=== PATIENT | male | born 1935 | race Two or more races ===

== ENCOUNTER 2017-08-01 17:32 | Inpatient (IN) | payer MEDICARE ==
[~2017-08-01] VITALS: Ht 188 cm; Wt 79.4 kg
[2017-08-01 17:45] VITALS: BP 121/56
[2017-08-01] MEDS ORDERED: PROCARDIA XL90 M4 ORAL (18:13)
[2017-08-01] MEDS ORDERED: LISINOPRIL20 MG ORAL (18:13)
[2017-08-01] MEDS ORDERED: PEPCID20 MG ORAL (18:13)
[2017-08-01] MEDS ORDERED: ZEMPLAR1 MC1 ORAL (18:13)
[2017-08-01] MEDS ORDERED: TRADJENTA5 MG PO (18:13)
[2017-08-01] MEDS ORDERED: SINEMET 25-1001 EAC1 ORAL (18:13)
[2017-08-01] MEDS ORDERED: DOCUSATE SODIU100 MG ORAL (18:13)
[2017-08-01] MEDS ORDERED: ATORVASTATIN CA80 MG ORAL (18:13)
[2017-08-01] MEDS ORDERED: PLAVIX75 MG ORAL (18:13)
[2017-08-01] MEDS ORDERED: FERROUS SULFAT325 MG ORAL (18:13)
[2017-08-01] MEDS ORDERED: MULTIVITAMINS1 EAC8 ORAL (18:13)
[2017-08-01] MEDS ORDERED: ARICEPT5 MG ORAL (18:13)
[2017-08-01] MEDS ORDERED: TAMSULOSIN HCL0.4 MG ORAL (18:13)
[2017-08-01] MEDS ORDERED: POTASSIUM CHLO20 ME2 ORAL (18:13)
[2017-08-01] MEDS ORDERED: TORSEMIDE20 MG ORAL (18:13)
[2017-08-01] MEDS ORDERED: FISH OIL CAP1000 MG ORAL (18:13)
[2017-08-01] MEDS ORDERED: VITAMIN D400 INTLU ORAL (18:13)
[2017-08-01 18:20] LABS: BASOPHILS % (AUTO) 1.4 % (0.0-2.0); EOSINOPHILS % (AUTO) 3.1 % (0.0-3.0); HEMATOCRIT 29.9 % (42.0-52.0); LYMPHOCYTES % (AUTO) 18.6 % (20.0-45.0); MEAN CORPUSCULAR VOLUME 88 FL (80-99); MONOCYTES % (AUTO) 11.2 % (1.0-10.0); NEUTROPHILS % (AUTO) 65.7 % (45.0-75.0); PLATELET COUNT 389 K/UL (150-450); RED BLOOD COUNT 3.37 M/UL (4.70-6.10); WHITE BLOOD COUNT 10.2 K/UL (4.8-10.8)
[2017-08-01 18:25] LABS: ANION GAP 7 mmol/L (5-15); BLOOD UREA NITROGEN 38 mg/dL (7-18); CARBON DIOXIDE 25 MMOL/L (21-32); CHLORIDE 104 MMOL/L (98-107); CREATININE 2.1 MG/DL (0.55-1.30); POTASSIUM 4.9 MMOL/L (3.5-5.1); SODIUM 136 MMOL/L (136-145)
[2017-08-01 18:32] LABS: INR 1.1 (0.9-1.1)
--- NOTE | 2017-08-01 18:32 | Emergency Room Report ---
History of Present Illness General Chief Complaint: Gastrointestinal Bleed Source: Patient, Medical Record, EMS Present Illness HPI Patient present with complaints of general weakness Patient himself has some underlying confusion cannot provide significant history of why he was sent to the ER skilled nursing reports continued bright red blood per rectum over the course of the day Patient himself reports feeling lightheaded and questionable syncopal episode Denies any chest pain or shortness of breath denies any back or flank pain Allergies: Coded Allergies: CHLORHEXIDINE (Verified Allergy, Unknown, 08/01/17) Patient History Past Medical History: see triage record Pertinent Family History: none Reviewed Nursing Documentation: PMH: Agreed; PSxH: Agreed Nursing Documentation-PMH Past Medical History: No History, Except For Hx Hypertension: Yes Hx Diabetes: Yes Review of Systems All Other Systems: negative except mentioned in HPI Physical Exam Vital Signs Date Time Temp Pulse Resp B/P (MAP) Pulse Ox O2 Delivery O2 Flow Rate FiO2 08/01/17 17:35 97.3 76 20 128/59 95 Room Air 97.3 Sp02 EP Interpretation: reviewed, normal General Appearance: no apparent distress Head: normocephalic, atraumatic Eyes: bilateral eye PERRL, bilateral eye EOMI ENT: hearing grossly normal, normal pharynx, TMs + canals normal, uvula midline Neck: full range of motion, supple, no meningismus, no bony tend Respiratory: lungs clear, normal breath sounds, no rhonchi, no respiratory distress, no retraction, no accessory muscle use Cardiovascular #1: normal peripheral pulses, regular rate, rhythm, no edema, no gallop, no JVD, no murmur Gastrointestinal: normal bowel sounds, non tender, soft, no mass, no organomegaly, non-distended, no guarding, no hernia, no pulsatile mass, no rebound Genitourinary: no CVA tenderness Musculoskeletal: other - Moving both upper extremities Neurologic: responsive, sensory intact Psychiatric: mood/affect normal Skin: pallor Lymphatic: normal inspection, no adenopathy Medical Decision Making Diagnostic Impression: Primary Impression: Gastrointestinal hemorrhage Additional Impression: Elevated troponin ER Course Patient is a fairly complex patient with multiple differential to consideration including but not limited to cardiac cardiopulmonary and vascular emergencies Patient's hemoglobin is 10.0 at this time acute transfusion has not been performed Also remaining hemodynamically stable However given the complaints and presentation patient will require further inpatient admission Aspirin has not been given as the patient appears to have possible GI bleed Labs Test 08/01/17 17:50 White Blood Count 10.2 K/UL (4.8-10.8) Red Blood Count 3.37 M/UL (4.70-6.10) Hemoglobin 10.0 G/DL (14.2-18.0) Hematocrit 29.9 % (42.0-52.0) Mean Corpuscular Volume 88 FL (80-99) Mean Corpuscular Hemoglobin 29.6 PG (27.0-31.0) Mean Corpuscular Hemoglobin Concent 33.5 G/DL (32.0-36.0) Red Cell Distribution Width 12.0 % (11.6-14.8) Platelet Count 389 K/UL (150-450) Mean Platelet Volume 6.0 FL (6.5-10.1) Neutrophils (%) (Auto) 65.7 % (45.0-75.0) Lymphocytes (%) (Auto) 18.6 % (20.0-45.0) Monocytes (%) (Auto) 11.2 % (1.0-10.0) Eosinophils (%) (Auto) 3.1 % (0.0-3.0) Basophils (%) (Auto) 1.4 % (0.0-2.0) Prothrombin Time 11.4 SEC (9.30-11.50) Prothromb Time International Ratio 1.1 (0.9-1.1) Activated Partial Thromboplast Time 27 SEC (23-33) Sodium Level 136 MMOL/L (136-145) Potassium Level 4.9 MMOL/L (3.5-5.1) Chloride Level 104 MMOL/L (98-107) Carbon Dioxide Level 25 MMOL/L (21-32) Anion Gap 7 mmol/L (5-15) Blood Urea Nitrogen 38 mg/dL (7-18) Creatinine 2.1 MG/DL (0.55-1.30) Estimat Glomerular Filtration Rate mL/min (>60) Glucose Level 118 MG/DL (74-106) Calcium Level 8.0 MG/DL (8.5-10.1) Total Bilirubin 0.2 MG/DL (0.2-1.0) Aspartate Amino Transf (AST/SGOT) 23 U/L (15-37) Alanine Aminotransferase (ALT/SGPT) 23 U/L (12-78) Alkaline Phosphatase 139 U/L (46-116) Total Creatine Kinase 102 U/L (26-308) Creatine Kinase MB 0.8 NG/ML (0.0-3.6) Creatine Kinase MB Relative Index 0.7 Troponin I 0.132 ng/mL (0.000-0.056) Total Protein 6.7 G/DL (6.4-8.2) Albumin 2.9 G/DL (3.4-5.0) Globulin 3.8 g/dL Albumin/Globulin Ratio 0.8 (1.0-2.7) Lipase 310 U/L (73-393) Rhythm Strip Diag. Results EP Interpretation: yes Rate: 76 Rhythm: NSR, no PVC's, no ectopy Chest X-Ray Diagnostic Results Chest X-Ray Diagnostic Results : Chest X-Ray Ordered: Yes # of Views/Limited/Complete: 1 View Indication: Chest Pain EP Interpretation: Yes Interpretation: no consolidation, no effusion, no pneumothorax, other - Elevated Right hemidiaphragm Impression: No acute disease Electronically Signed by: Kofi Kang DO Last Vital Signs Date Time Temp Pulse Resp B/P (MAP) Pulse Ox O2 Delivery O2 Flow Rate FiO2 08/01/17 17:45 97.3 69 27 121/56 100 Room Air 97.3 Status: improved Disposition: ADMITTED INPATIENT Condition: Serious Kofi Kang DO Aug 01, 2017 18:32
[2017-08-01 18:38] LABS: ALANINE AMINOTRANSFERASE 23 U/L (12-78); ALBUMIN 2.9 G/DL (3.4-5.0); ALBUMIN/GLOBULIN RATIO 0.8 (1.0-2.7); ALKALINE PHOSPHATASE 139 U/L (46-116); ASPARTATE AMINO TRANSFERASE 23 U/L (15-37); BILIRUBIN,TOTAL 0.2 MG/DL (0.2-1.0); CKMB 0.8 NG/ML (0.0-3.6); CREATINE KINASE 102 U/L (26-308)
[2017-08-01 19:01] VITALS: BP 129/59
--- NOTE | 2017-08-01 20:11 | Pulmonolgy Critical Care Note ---
Critical Care - Asmt/Plan Assessment/Plan: History of Present Illness General Chief Complaint: Gastrointestinal Bleed Source: Patient, Medical Record, EMS Present Illness HPI Patient present from assisted, complians of general weakness, noted to have lower GI bleed in the ED. Patient himself has some underlying confusion cannot provide significant history of why he was sent to the ER skilled nursing reports continued bright red blood per rectum over the course of the day Patient himself reports feeling lightheaded and questionable syncopal episode Denies any chest pain or shortness of breath denies any back or flank pain Allergies: Coded Allergies: CHLORHEXIDINE (Verified Allergy, Unknown, 08/01/17) Patient History Past Medical History: Dementia, CAD - on Plavix, HTN, Type 2 Diabetes Pertinent Family History: none Reviewed Nursing Documentation: PMH: Agreed; PSxH: Agreed Nursing Documentation-PMH Past Medical History: No History, Except For Hx Hypertension: Yes Hx Diabetes: Yes Review of Systems All Other Systems: negative except mentioned in HPI Physical Exam Vital Signs Date Time Temp Pulse Resp B/P (MAP) Pulse Ox O2 Delivery O2 Flow Rate FiO2 08/01/17 17:35 97.3 76 20 128/59 95 Room Air 97.3 Sp02 EP Interpretation: reviewed, normal General Appearance: no apparent distress Head: normocephalic, atraumatic Eyes: bilateral eye PERRL, bilateral eye EOMI ENT: hearing grossly normal, normal pharynx, TMs + canals normal, uvula midline Neck: full range of motion, supple, no meningismus, no bony tend Respiratory: lungs clear, normal breath sounds, no rhonchi, no respiratory distress, no retraction, no accessory muscle use Cardiovascular #1: normal peripheral pulses, regular rate, rhythm, no edema, no gallop, no JVD, no murmur Gastrointestinal: normal bowel sounds, non tender, soft, no mass, no organomegaly, non-distended, no guarding, no hernia, no pulsatile mass, no rebound Genitourinary: no CVA tenderness Musculoskeletal: other - Moving both upper extremities Neurologic: responsive, sensory intact Psychiatric: mood/affect normal Skin: pallor Lymphatic: normal inspection, no adenopathy Medical Decision Making GI bleeding, previously on Plavix Currently HD stable H/o CAD, T2DM, HTN, Dementia Plan: Admit monitored bed Type and Cross H+H Q8 GI consult Dr Daigle [phone] Trend Troponin Daily BMP Last Vital Signs Date Time Temp Pulse Resp B/P (MAP) Pulse Ox O2 Delivery O2 Flow Rate FiO2 08/01/17 17:45 97.3 69 27 121/56 100 Room Air 97.3 Critical Care - Objective Last 24 Hour Vital Signs Date Time Temp Pulse Resp B/P (MAP) Pulse Ox O2 Delivery O2 Flow Rate FiO2 08/01/17 19:01 97.3 68 26 129/59 98 Room Air 97.3 08/01/17 17:45 97.3 69 27 121/56 100 Room Air 97.3 08/01/17 17:35 97.3 76 20 128/59 95 Room Air 97.3 Accucheck: 118 Critical Care - Subjective ROS Limited/Unobtainable: Yes Condition: stable, unchanged EKG Rhythm: Sinus Rhythm Ritchie Aquino M.D. Aug 01, 2017 20:11
[2017-08-01 21:05] VITALS: BP 125/61
[2017-08-01 22:30] VITALS: BP 126/62
[2017-08-01] MEDS ORDERED: HYDROmorphone 1mg/ml Carpuject IVP PRN (23:30)
[2017-08-01] MEDS ORDERED: DiphenhydrAMINE 50mg/ml Inj IVP PRN (23:30)
[2017-08-01] MEDS ORDERED: Hydromorphone 0.5mg/0.5ml inj IVP PRN (23:30)
[2017-08-02] VITALS: BP 160/75
[2017-08-02] MEDS: D5NS 1,000 ML IV SCH ×2 (00:43→12:56)
[2017-08-02 04:00] VITALS: BP 112/45
[2017-08-02] MEDS: NovoLOG Insulin Flexpen SUBQ SCH ×4 (06:30→21:36)
[2017-08-02 08:00] VITALS: BP 115/58
[2017-08-02] MEDS ORDERED: Lisinopril 20mg tab ORAL SCH (09:00)
[2017-08-02 09:14] LABS: BASOPHILS % (AUTO) 0.9 % (0.0-2.0); HEMATOCRIT 28.2 % (42.0-52.0); HEMOGLOBIN 9.5 G/DL (14.2-18.0); LYMPHOCYTES % (AUTO) 15.9 % (20.0-45.0); MEAN CORPUSCULAR VOLUME 90 FL (80-99); MONOCYTES % (AUTO) 11.1 % (1.0-10.0); NEUTROPHILS % (AUTO) 70.1 % (45.0-75.0); PLATELET COUNT 386 K/UL (150-450); RED BLOOD COUNT 3.15 M/UL (4.70-6.10); RED CELL DISTRIBUTION WIDTH 12.4 % (11.6-14.8); WHITE BLOOD COUNT 11.1 K/UL (4.8-10.8)
--- NOTE | 2017-08-02 09:14 | Cardiac Electrophysiology PN ---
Subjective Subjective Cardiology consult dictated [id number] Objective Last 24 Hour Vital Signs Date Time Temp Pulse Resp B/P (MAP) Pulse Ox O2 Delivery O2 Flow Rate FiO2 08/02/17 04:00 66 08/02/17 04:00 97.9 65 21 112/45 99 Room Air 97.9 08/02/17 00:00 97.3 78 22 160/75 93 Room Air 97.3 08/02/17 00:00 69 08/01/17 22:40 97.8 69 17 126/62 98 Room Air 97.8 08/01/17 22:30 97.8 69 17 126/62 98 Room Air 97.8 08/01/17 21:05 97.6 70 18 125/61 97 Room Air 97.6 08/01/17 19:01 97.3 68 26 129/59 98 Room Air 97.3 08/01/17 17:45 97.3 69 27 121/56 100 Room Air 97.3 08/01/17 17:35 97.3 76 20 128/59 95 Room Air 97.3 Intake and Output 08/01/17 08/02/17 19:00 07:00 Intake Total 0 ml Output Total 150 ml Balance 0 ml -150 ml Intake Oral 0 ml Output Urine Total 150 ml # Bowel Movements 1 Laboratory Tests Test 08/01/17 17:50 08/02/17 08:25 White Blood Count 10.2 K/UL (4.8-10.8) Pending Red Blood Count 3.37 M/UL (4.70-6.10) L Pending Hemoglobin 10.0 G/DL (14.2-18.0) L Pending Hematocrit 29.9 % (42.0-52.0) L Pending Mean Corpuscular Volume 88 FL (80-99) Pending Mean Corpuscular Hemoglobin 29.6 PG (27.0-31.0) Pending Mean Corpuscular Hemoglobin Concent 33.5 G/DL (32.0-36.0) Pending Red Cell Distribution Width 12.0 % (11.6-14.8) Pending Platelet Count 389 K/UL (150-450) Pending Mean Platelet Volume 6.0 FL (6.5-10.1) L Pending Neutrophils (%) (Auto) 65.7 % (45.0-75.0) Pending Lymphocytes (%) (Auto) 18.6 % (20.0-45.0) L Pending Monocytes (%) (Auto) 11.2 % (1.0-10.0) H Pending Eosinophils (%) (Auto) 3.1 % (0.0-3.0) H Pending Basophils (%) (Auto) 1.4 % (0.0-2.0) Pending Prothrombin Time 11.4 SEC (9.30-11.50) Prothromb Time International Ratio 1.1 (0.9-1.1) Activated Partial Thromboplast Time 27 SEC (23-33) Sodium Level 136 MMOL/L (136-145) Pending Potassium Level 4.9 MMOL/L (3.5-5.1) Pending Chloride Level 104 MMOL/L (98-107) Pending Carbon Dioxide Level 25 MMOL/L (21-32) Pending Anion Gap 7 mmol/L (5-15) Blood Urea Nitrogen 38 mg/dL (7-18) H Pending Creatinine 2.1 MG/DL (0.55-1.30) H Pending Estimat Glomerular Filtration Rate mL/min (>60) Pending Glucose Level 118 MG/DL (74-106) H Pending Calcium Level 8.0 MG/DL (8.5-10.1) L Pending Total Bilirubin 0.2 MG/DL (0.2-1.0) Aspartate Amino Transf (AST/SGOT) 23 U/L (15-37) Alanine Aminotransferase (ALT/SGPT) 23 U/L (12-78) Alkaline Phosphatase 139 U/L (46-116) H Total Creatine Kinase 102 U/L (26-308) Creatine Kinase MB 0.8 NG/ML (0.0-3.6) Creatine Kinase MB Relative Index 0.7 Troponin I 0.132 ng/mL (0.000-0.056) Pending Total Protein 6.7 G/DL (6.4-8.2) Albumin 2.9 G/DL (3.4-5.0) L Globulin 3.8 g/dL Albumin/Globulin Ratio 0.8 (1.0-2.7) L Lipase 310 U/L (73-393) Reyes Solomon MD Aug 02, 2017 09:14
[2017-08-02 09:26] LABS: ANION GAP 8 mmol/L (5-15); BLOOD UREA NITROGEN 40 mg/dL (7-18); CALCIUM 7.8 MG/DL (8.5-10.1); CARBON DIOXIDE 23 MMOL/L (21-32); CHLORIDE 106 MMOL/L (98-107); CREATININE 1.9 MG/DL (0.55-1.30); POTASSIUM 4.7 MMOL/L (3.5-5.1); SODIUM 136 MMOL/L (136-145)
[2017-08-02] MEDS: Torsemide 10mg tab ORAL SCH (09:53)
[2017-08-02] MEDS: Donepezil 5mg Tab ORAL SCH (09:53)
[2017-08-02] MEDS: Paricalcitol 1mcg cap ORAL SCH ×3 (09:53→18:28)
[2017-08-02] MEDS: Docusate 100mg cap ORAL SCH ×2 (09:54→18:28)
[2017-08-02] MEDS: Vitamin D 1000 IU Tab ORAL SCH (09:54)
[2017-08-02] MEDS: Levodopa/Carbidopa 25/100 tab ORAL SCH ×3 (09:54→18:28)
[2017-08-02] MEDS: Pantoprazole Inj IVP SCH ×2 (09:55→21:33)
--- NOTE | 2017-08-02 10:12 | Diagnostic Imaging Report ---
Indication: Chest pain Technique: One view of the chest Comparison: none Findings: The right hemidiaphragm is elevated. There is compressive atelectasis at the right lung base. Lungs and pleural spaces otherwise clear. Metallic foreign bodies project over the upper abdomen, may represent surgical clips Impression: No definite acute process Elevated right hemidiaphragm with resultant right basilar atelectasis
[2017-08-02 12:00] VITALS: BP 114/58
--- NOTE | 2017-08-02 14:52 | History and Physical ---
History of Present Illness General Date patient seen: Aug 02, 2017 Time patient seen: 14:52 Reason for Hospitalization: Acute Gastrointestinal Bleed Present Illness HPI 82y/o male with pmh of Parkinson's disease, HTN, HLD, dementia, BPH, CAD, DM2 who presents with bloody stools. Pt was sent from SNF given stool that appears deep red with some black tarry stool too. Pt states he has never had this before. He c/o mid abd discomfort. Denies f/c, n/v, chest pain, SOB, dysuria. C/ o generalized weakness. In ED, pt had no e/o active bleeding. CBC shoed hgb 10. Allergies: Coded Allergies: CHLORHEXIDINE (Verified Allergy, Unknown, 08/01/17) Medication History Scheduled Atorvastatin Calcium* (Lipitor*), 80 MG ORAL BEDTIME, (Reported) Carbidopa/Levodopa 25-100 Mg* (Sinemet 25-100 Mg Tablet*), 1 TAB ORAL THREE TIMES A DAY, (Reported) Clopidogrel Bisulfate* (Plavix*), 75 MG ORAL DAILY, (Reported) Docusate Sodium* (Docusate Sodium*), 100 MG ORAL TWICE A DAY, (Reported) Donepezil Hcl* (Aricept*), 5 MG ORAL DAILY, (Reported) Famotidine (Pepcid), 20 MG ORAL BEDTIME, (Reported) Ferrous Sulfate* (Ferrous Sulfate*), 325 MG ORAL TWICE A DAY, (Reported) Fish Oil (Fish Oil 1,000 mg Capsule), 1,000 MG ORAL DAILY, (Reported) Linagliptin (Tradjenta), 5 MG PO DAILY, (Reported) Lisinopril (Lisinopril*), 20 MG ORAL BID, (Reported) Multivitamin With Minerals (Multivitamins With Minerals*), 1 TAB ORAL DAILY, ( Reported) Nifedipine Xl* (Procardia Xl*), 90 MG ORAL DAILY, (Reported) Paricalcitol (Zemplar), 1 MCG ORAL TID, (Reported) Potassium Chloride (Potassium Chloride), 20 MEQ ORAL DAILY, (Reported) Tamsulosin Hcl (Tamsulosin Hcl*), 0.4 MG ORAL BEDTIME, (Reported) Torsemide* (Demadex*), 20 MG ORAL DAILY, (Reported) Vitamin D (Vitamin D3), 1,000 UNITS ORAL DAILY, (Reported) Patient History History Provided By: Patient, Medical Record, PMD Healthcare decision maker Resuscitation status Full Code Advanced Directive on File Past Medical/Surgical History Past Medical/Surgical History: (1) HTN (hypertension) (2) DM2 (diabetes mellitus, type 2) (3) CAD (coronary artery disease) (4) HLD (hyperlipidemia) (5) BPH (benign prostatic hyperplasia) (6) Dementia (7) carotid stenosis s/p left carotid stenting (8) Prostate cancer (9) CVA (cerebral vascular accident) (10) Parkinsonism (11) Chronic diastolic heart failure Family History Family History: Patient reports no known family medical history. Social History Social History: (1) resides in [facility] Review of Systems Constitutional: Reports: weakness Eye: Reports: no symptoms ENT: Reports: no symptoms Respiratory: Reports: no symptoms Cardiovascular: Reports: no symptoms Gastrointestinal: Reports: abdominal pain, melena Genitourinary: Reports: no symptoms Musculoskeletal: Reports: no symptoms Skin: Reports: no symptoms Psychiatric: Reports: no symptoms Neurological: Reports: no symptoms Endocrine: Reports: no symptoms Hematologic/Lymphatic: Reports: no symptoms Physical Exam Physical Exam Narrative General: alert, cooperative, no distress, appears stated age Head: normocephalic, without obvious abnormality, atraumatic Eyes: conjunctivae/corneas clear. PERRL, EOM's intact Throat: lips, mucosa, and tongue normal. MMM Neck: supple, symmetrical, trachea midline, and no JVD Lungs: clear to auscultation bilaterally Heart: regular rate and rhythm, S1, S2 normal, no murmur, click, rub or gallop Abdomen: soft, mild TTP of mid abdominal area w/o rebound/guarding, non- distended, bowel sounds normal Extremities: extremities normal, atraumatic, no cyanosis or edema Pulses: 2+ and symmetric Skin: skin color, texture, turgor normal; no rashes or lesions Neurologic: grossly normal, no focal deficits Last 24 Hour Vital Signs Date Time Temp Pulse Resp B/P (MAP) Pulse Ox O2 Delivery O2 Flow Rate FiO2 08/02/17 12:00 97.7 75 17 114/58 98 Room Air 97.7 08/02/17 09:00 74 115/58 08/02/17 08:00 97.7 74 19 115/58 97 Room Air 97.7 08/02/17 08:00 69 08/02/17 04:00 66 08/02/17 04:00 97.9 65 21 112/45 99 Room Air 97.9 08/02/17 00:00 97.3 78 22 160/75 93 Room Air 97.3 08/02/17 00:00 69 08/01/17 22:40 97.8 69 17 126/62 98 Room Air 97.8 08/01/17 22:30 97.8 69 17 126/62 98 Room Air 97.8 08/01/17 21:05 97.6 70 18 125/61 97 Room Air 97.6 08/01/17 19:01 97.3 68 26 129/59 98 Room Air 97.3 08/01/17 17:45 97.3 69 27 121/56 100 Room Air 97.3 08/01/17 17:35 97.3 76 20 128/59 95 Room Air 97.3 Intake and Output 08/01/17 08/02/17 19:00 07:00 Intake Total 0 ml 70 ml Output Total 150 ml Balance 0 ml -80 ml Intake Oral 0 ml IV Total 70 ml Output Urine Total 150 ml # Bowel Movements 1 Laboratory Tests Test 08/01/17 17:50 08/02/17 08:25 08/02/17 12:20 White Blood Count 10.2 K/UL (4.8-10.8) 11.1 K/UL (4.8-10.8) H Red Blood Count 3.37 M/UL (4.70-6.10) L 3.15 M/UL (4.70-6.10) L Hemoglobin 10.0 G/DL (14.2-18.0) L 9.5 G/DL (14.2-18.0) L Hematocrit 29.9 % (42.0-52.0) L 28.2 % (42.0-52.0) L Mean Corpuscular Volume 88 FL (80-99) 90 FL (80-99) Mean Corpuscular Hemoglobin 29.6 PG (27.0-31.0) 30.2 PG (27.0-31.0) Mean Corpuscular Hemoglobin Concent 33.5 G/DL (32.0-36.0) 33.7 G/DL (32.0-36.0) Red Cell Distribution Width 12.0 % (11.6-14.8) 12.4 % (11.6-14.8) Platelet Count 389 K/UL (150-450) 386 K/UL (150-450) Mean Platelet Volume 6.0 FL (6.5-10.1) L 6.0 FL (6.5-10.1) L Neutrophils (%) (Auto) 65.7 % (45.0-75.0) 70.1 % (45.0-75.0) Lymphocytes (%) (Auto) 18.6 % (20.0-45.0) L 15.9 % (20.0-45.0) L Monocytes (%) (Auto) 11.2 % (1.0-10.0) H 11.1 % (1.0-10.0) H Eosinophils (%) (Auto) 3.1 % (0.0-3.0) H 2.0 % (0.0-3.0) Basophils (%) (Auto) 1.4 % (0.0-2.0) 0.9 % (0.0-2.0) Prothrombin Time 11.4 SEC (9.30-11.50) Prothromb Time International Ratio 1.1 (0.9-1.1) Activated Partial Thromboplast Time 27 SEC (23-33) Sodium Level 136 MMOL/L (136-145) 136 MMOL/L (136-145) Potassium Level 4.9 MMOL/L (3.5-5.1) 4.7 MMOL/L (3.5-5.1) Chloride Level 104 MMOL/L (98-107) 106 MMOL/L (98-107) Carbon Dioxide Level 25 MMOL/L (21-32) 23 MMOL/L (21-32) Anion Gap 7 mmol/L (5-15) 8 mmol/L (5-15) Blood Urea Nitrogen 38 mg/dL (7-18) H 40 mg/dL (7-18) H Creatinine 2.1 MG/DL (0.55-1.30) H 1.9 MG/DL (0.55-1.30) H Estimat Glomerular Filtration Rate mL/min (>60) mL/min (>60) Glucose Level 118 MG/DL (74-106) H 126 MG/DL (74-106) H Calcium Level 8.0 MG/DL (8.5-10.1) L 7.8 MG/DL (8.5-10.1) L Total Bilirubin 0.2 MG/DL (0.2-1.0) Aspartate Amino Transf (AST/SGOT) 23 U/L (15-37) Alanine Aminotransferase (ALT/SGPT) 23 U/L (12-78) Alkaline Phosphatase 139 U/L (46-116) H Total Creatine Kinase 102 U/L (26-308) Creatine Kinase MB 0.8 NG/ML (0.0-3.6) Creatine Kinase MB Relative Index 0.7 Troponin I 0.132 ng/mL (0.000-0.056) 0.108 ng/mL (0.000-0.056) 0.104 ng/mL (0.000-0.056) Total Protein 6.7 G/DL (6.4-8.2) Albumin 2.9 G/DL (3.4-5.0) L Globulin 3.8 g/dL Albumin/Globulin Ratio 0.8 (1.0-2.7) L Lipase 310 U/L (73-393) Height (Feet): 6 Height (Inches): 2.00 Weight (Pounds): 175 Medications Current Medications Medications (Trade) Dose Ordered Sig/Sunday Route PRN Reason Start Time Stop Time Status Last Admin Dose Admin Acetaminophen (Tylenol) 650 mg Q6H PRN ORAL Mild Pain/Temp > 101 08/01/17 23:30 08/31/17 23:29 Atorvastatin Calcium (Lipitor) 80 mg BEDTIME ORAL 08/02/17 21:00 09/01/17 20:59 Carbidopa/Levodopa (Sinemet 25/100) 1 tab THREE TIMES A DAY ORAL 08/02/17 09:00 09/01/17 08:59 08/02/17 12:55 Dextrose (Dextrose 50%) STAT PRN IV Hypoglycemia 08/01/17 23:45 08/31/17 23:44 Dextrose/Sodium Chloride 1,000 ml @ 70 mls/hr [id number] IV 08/01/17 23:30 08/31/17 23:29 08/02/17 12:56 Diphenhydramine HCl (Benadryl) 25 mg Q6H PRN IVP Itching 08/01/17 23:30 08/31/17 23:29 Docusate Sodium (Colace) 100 mg TWICE A DAY ORAL 08/02/17 09:00 09/01/17 08:59 08/02/17 09:54 Donepezil HCl (Aricept) 5 mg DAILY ORAL 08/02/17 09:00 09/01/17 08:59 08/02/17 09:53 Fish Oil (Fish Oil) 1,000 mg DAILY ORAL 08/02/17 09:00 09/01/17 08:59 08/02/17 09:53 Hydromorphone HCl (Dilaudid) 0.5 mg Q4H PRN IVP Moderate Breakthru Pain (5-7) 08/01/17 23:30 08/08/17 23:29 Hydromorphone HCl (Dilaudid) 1 mg Q3HR PRN IVP Severe Pain (Pain Scale 7-10) 08/01/17 23:30 08/08/17 23:29 Insulin Aspart (NovoLOG) BEFORE MEALS AND HS SUBQ 08/02/17 06:30 09/01/17 06:29 08/02/17 12:56 Metoprolol Tartrate (Lopressor) 12.5 mg Q12HR ORAL 08/02/17 21:00 09/01/17 20:59 Multivitamins (Multivitamins) 1 tab DAILY ORAL 08/02/17 09:00 09/01/17 08:59 08/02/17 09:53 Nifedipine (Procardia XL) 90 mg DAILY ORAL 08/02/17 09:00 09/01/17 08:59 Ondansetron HCl (Zofran) 4 mg Q8HR PRN IVP Nausea & Vomiting 08/01/17 23:30 08/31/17 23:29 Pantoprazole (Protonix) 40 mg EVERY 12 HOURS IVP 08/02/17 09:00 09/01/17 08:59 08/02/17 09:55 Paricalcitol (Zemplar) 1 mcg TID ORAL 08/02/17 09:00 09/01/17 08:59 08/02/17 12:55 Potassium Chloride (K-Dur) 20 meq DAILY ORAL 08/02/17 09:00 09/01/17 08:59 08/02/17 09:53 Sitagliptin Phosphate (Januvia) 25 mg ACBREAKFAST ORAL 08/02/17 17:30 09/01/17 17:29 Tamsulosin HCl (Flomax) 0.4 mg BEDTIME ORAL 08/02/17 21:00 09/01/17 20:59 Torsemide (Demadex) 20 mg DAILY ORAL 08/02/17 09:00 09/01/17 08:59 08/02/17 09:53 Vitamin D (Vitamin D) 1,000 intlu DAILY ORAL 08/02/17 09:00 09/01/17 08:59 08/02/17 09:54 Assessment/Plan Problem List: (1) Acute GI bleeding ICD Codes: K92.2 - Gastrointestinal hemorrhage, unspecified SNOMED: 41345934 (2) Elevated troponin ICD Codes: R74.8 - Abnormal levels of other serum enzymes SNOMED: 069546096, 434935589, 166145011 (3) STEPHANIE vs STEPHANIE on CKD Assessment & Plan: Unclear baseline SCr (4) DM2 (diabetes mellitus, type 2) ICD Codes: E11.9 - Type 2 diabetes mellitus without complications SNOMED: 91047046 (5) HTN (hypertension) ICD Codes: I10 - Essential (primary) hypertension SNOMED: 37879286 (6) HLD (hyperlipidemia) ICD Codes: E78.5 - Hyperlipidemia, unspecified SNOMED: 55739415 (7) BPH (benign prostatic hyperplasia) ICD Codes: N40.0 - Benign prostatic hyperplasia without lower urinary tract symptoms SNOMED: 186228586 (8) CAD (coronary artery disease) ICD Codes: I25.10 - Atherosclerotic heart disease of [place] coronary artery without angina pectoris SNOMED: 65838376 (9) Dementia ICD Codes: F03.90 - Unspecified dementia without behavioral disturbance SNOMED: 12297623 (10) Parkinsonism ICD Codes: G20 - Parkinson's disease SNOMED: 98761535 (11) CVA (cerebral vascular accident) ICD Codes: I63.9 - Cerebral infarction, unspecified SNOMED: 039257850 (12) Chronic diastolic heart failure ICD Codes: I50.32 - Chronic diastolic (congestive) heart failure SNOMED: 026377571 Status: stable Assessment/Plan Possibly lower GI bleed 2/2 diverticulosis vs AVMs vs hemorrhoids, or upper GI bleed 2/2 PUD Elevated troponin may be 2/2 renal insufficiency Admit to tele GI consulted--plan for EGD Mon once cleared by cardiology PPI IV BID Trend CBC, transfuse for hgb<7.5 or active bleeding Trend trop/EKG Check TTE Cardiology consulted Hold plavix given concern for bleed Hold lisinopril and torsemide given STEPHANIE IVFs Trend BMP Pain control, bowel regimen Supportive care DVT Prophylaxis: SCD Code Status: DNR/DNI Hospital Classification Declaration: Based on this initial evaluation, and depending on the patient's clinical course, I anticipate that this patient will require hospitalization for 2-3 days for acute GI bleed and close respiratory/ hemodynamic monitoring. Disposition: Once the patient is stable to leave the hospital, I anticipate the patient will likely be discharged to the following environment: back to SNF I spent 72 minutes on this patient's case, and >50% was dedicated to counseling and/or care coordination. Discussed with patient/family, nursing staff, SW/CM, GI, cardiology regarding clinical status, treatment course, and disposition planning. Time of note may not reflect time of encounter. Sherry Mccoy M.D. Aug 02, 2017 14:52
[2017-08-02 16:00] VITALS: BP 129/70
--- NOTE | 2017-08-02 16:45 | Consultation ---
DATE OF CONSULTATION: 08/02/2017 CARDIOLOGY CONSULTATION CONSULTING PHYSICIAN: Reyes Solomon M.D. REFERRING PHYSICIAN: Lawrence Francis M.D. REASON FOR CONSULTATION: Elevated troponin. HISTORY OF PRESENT ILLNESS: The patient is an 82-year-old gentleman, who was brought to the emergency from [facility] for generalized weakness. The patient was noted to have lower gastrointestinal bleed in the emergency room. The patient still denies any chest pain, palpitation, or shortness of breath. Per ER note, the patient continued to have bright red blood per rectum. At the time of my evaluation, the patient denies any chest pain or shortness of breath and he is on the telemetry unit. PAST MEDICAL HISTORY: 1. Hypertension. 2. Type 2 diabetes. 3. History of coronary artery disease. 4. Dementia. FAMILY HISTORY: Noncontributory. SOCIAL HISTORY: He lives in [facility]. Does not smoke or drink alcohol. REVIEW OF SYSTEMS: Performed and was negative other than what was mentioned in the history of present illness. PHYSICAL EXAMINATION: VITAL SIGNS: Blood pressure is 112/45, initially was 60/75, pulse rate 65, respirations 18, and he is afebrile. HEAD AND NECK: Showed no JVD. LUNGS: Clear. CARDIOVASCULAR: Shows regular S1 and S2 with no gallop or murmur. ABDOMEN: Soft and nontender. EXTREMITIES: No pitting edema. DIAGNOSTIC DATA: His EKG shows sinus rhythm with left axis deviation. LABORATORY DATA: White count of 10, hemoglobin of 10, hematocrit of 30, and platelet count is 389,000. Sodium 136, potassium 4.9, BUN of , creatinine of 2.1, and glucose of 118. Troponin is 0.132. ASSESSMENT AND PLAN: 1. Elevated troponin of 0.132. EKG showed sinus rhythm, but no acute ST-T wave abnormalities and the patient does not have any chest pain. We will completely rule out myocardial infarction protocol with serial cardiac enzymes, but the elevated troponin could be secondary to the patient's renal failure with the creatinine of 2.1. In the meantime, I will start the patient on low-dose beta-efe. Avoid aspirin in view of gastrointestinal bleed. 2. Hypertension. The patient is on Procardia XL 90 mg daily. Add Lopressor 25 mg b.i.d. 3. Hyperlipidemia. On Lipitor. 4. Rectal bleed. Further evaluation by Gastroenterology. 5. Diabetes. On insulin. 6. Benign prostatic hypertrophy. On Flomax. 7. Dementia. On Aricept. Thank you very much, Dr. Francis, for allowing me to participate in the care of this patient. Please do not hesitate to contact me for any questions regarding my evaluation. Reyes Solomon M.D. DR: SEE JOB#: [id number] CC:
[2017-08-02] MEDS: sitaGLIPtin 25mg tab ORAL SCH (18:28)
[2017-08-02 18:32] LABS: ANION GAP 9 mmol/L (5-15); BLOOD UREA NITROGEN 39 mg/dL (7-18); CARBON DIOXIDE 19 MMOL/L (21-32); CHLORIDE 108 MMOL/L (98-107); CREATININE 1.8 MG/DL (0.55-1.30); POTASSIUM 4.7 MMOL/L (3.5-5.1); SODIUM 136 MMOL/L (136-145)
[2017-08-02 18:42] LABS: BASOPHILS % (AUTO) 1.1 % (0.0-2.0); EOSINOPHILS % (AUTO) 1.9 % (0.0-3.0); HEMATOCRIT 27.7 % (42.0-52.0); HEMOGLOBIN 9.3 G/DL (14.2-18.0); LYMPHOCYTES % (AUTO) 18.9 % (20.0-45.0); MEAN CORPUSCULAR VOLUME 88 FL (80-99); MONOCYTES % (AUTO) 12.3 % (1.0-10.0); NEUTROPHILS % (AUTO) 65.8 % (45.0-75.0); PLATELET COUNT 395 K/UL (150-450); RED BLOOD COUNT 3.14 M/UL (4.70-6.10); WHITE BLOOD COUNT 12.1 K/UL (4.8-10.8)
[2017-08-02 19:32] LABS: INR 1.1 (0.9-1.1)
[2017-08-02 20:00] VITALS: BP 145/67
--- NOTE | 2017-08-02 20:15 | Consultation ---
DATE OF CONSULTATION: 08/02/2017 GASTROENTEROLOGY CONSULTATION CONSULTING PHYSICIAN: Aaron Montoya M.D. REFERRING PHYSICIAN: Lawrence Francis M.D. CHIEF COMPLAINT: GI bleeding. HISTORY OF PRESENT ILLNESS: This is an 82-year-old male with multiple medical problems, which I will dictate in a second, who was admitted to the hospital with possible elevated troponins. The patient had evidence of rectal bleeding yesterday. GI consult requested for further evaluation. According to the patient, he had the same symptoms about 5 years ago, but he does not remember what was done. He apologizes with severe dementia and he does not remember. PAST MEDICAL HISTORY: 1. Hypertension. 2. Diabetes type 2. 3. History of coronary artery disease. 4. Dementia. ALLERGIES: To chlorhexidine. MEDICATIONS: Please see medication reconciliation list. SOCIAL HISTORY: He lives currently in a [facility]. No recent history of tobacco, alcohol, or drug abuse. REVIEW OF SYSTEMS: Twelve-point review of systems was performed and pertinent positives in HPI. FAMILY HISTORY: Noncontributory. PHYSICAL EXAMINATION: VITAL SIGNS: Temperature 97.7, pulse 74, respirations 17, blood pressure 114/58. HEENT: Normocephalic and atraumatic. Mildly pale conjunctivae. NECK: Supple. No evidence of lymphadenopathy. CARDIOVASCULAR: Regular rhythm. Plus S1 and S2. LUNGS: Clear breath sounds bilaterally. ABDOMEN: Positive bowel sounds. Soft, nontender. No rebound. No guarding. No peritoneal sign. EXTREMITIES: No cyanosis. No clubbing. No edema. LABORATORY DATA: Sodium 136, potassium 4.7, BUN 40, creatinine 1.9, glucose 126. Troponin the latest is 0.104. Albumin is 2.9. White count is 11.1, hemoglobin 9.5, hematocrit 28.2, platelet count is 386,000. ASSESSMENT: This is an 82-year-old male with anemia, elevated troponin, renal insufficiency, dementia, diabetes. PLAN: According to the nurses, the bleeding was from yesterday. He has not had any bleeding today. I reviewed cardiology note of Dr. Solomon. He is following the patient's troponin. The patient most probably will need an endoscopy and colonoscopy, but at this time, we have to get clearance from Cardiology before we proceed. Given the patient has no recurrent bleeding today, so we have some time to wait until the patient is more stable and is cleared. Plan to prep the patient on Saturday for endoscopy and colonoscopy on Saturday. Meanwhile, we will stop the fish oil given there is bleeding. Hold any anticoagulation. Monitor hemoglobin and hematocrit on daily basis. Transfuse as needed. Continue on PPI. I want to thank Dr. Francis for this kind referral. Aaron Montoya M.D. DR: Alo JOB#: [id number] CC: Lawrence Francis M.D.; Fax#: [phone]
[2017-08-02] MEDS: Atorvastatin 80mg tab ORAL SCH (21:34)
[2017-08-02] MEDS: Tamsulosin 0.4mg cap ORAL SCH (21:34)
[2017-08-02] MEDS: Metoprolol Tartrate 12.5mg TAB ORAL SCH (21:34)
[2017-08-03] VITALS: BP 99/51
[2017-08-03 04:00] VITALS: BP_SYST 104; BP_SYST 110; BP_DIAS 51; BP_DIAS 52
[2017-08-03] MEDS: sitaGLIPtin 25mg tab ORAL SCH (06:02)
[2017-08-03] MEDS: NovoLOG Insulin Flexpen SUBQ SCH ×4 (06:03→21:08)
[2017-08-03 08:00] VITALS: BP 142/64
[2017-08-03 09:09] LABS: ANION GAP 9 mmol/L (5-15); BLOOD UREA NITROGEN 39 mg/dL (7-18); CALCIUM 8.1 MG/DL (8.5-10.1); CARBON DIOXIDE 22 MMOL/L (21-32); CHLORIDE 106 MMOL/L (98-107); CHOLESTEROL 88 MG/DL (< 200); CREATININE 1.9 MG/DL (0.55-1.30); HDL CHOLESTEROL 35 MG/DL (40-60); POTASSIUM 4.9 MMOL/L (3.5-5.1); SODIUM 137 MMOL/L (136-145); TRIGLYCERIDES 85 MG/DL (30-150)
[2017-08-03] MEDS: Pantoprazole Inj IVP SCH ×2 (09:12→20:48)
[2017-08-03] MEDS: Torsemide 10mg tab ORAL SCH (09:12)
[2017-08-03] MEDS: Vitamin D 1000 IU Tab ORAL SCH (09:12)
[2017-08-03] MEDS: Docusate 100mg cap ORAL SCH ×2 (09:12→17:12)
[2017-08-03] MEDS: Paricalcitol 1mcg cap ORAL SCH ×3 (09:13→17:12)
[2017-08-03] MEDS: Levodopa/Carbidopa 25/100 tab ORAL SCH ×3 (09:13→17:12)
[2017-08-03] MEDS: Metoprolol Tartrate 12.5mg TAB ORAL SCH ×2 (09:13→20:49)
[2017-08-03] MEDS: Donepezil 5mg Tab ORAL SCH (09:13)
[2017-08-03 12:00] VITALS: BP 112/56
--- NOTE | 2017-08-03 13:49 | General Progress Note ---
Assessment/Plan Assessment/Plan Assessment - rectal bleeding - Anemia - Elevated troponin - OBS - DM Recommendations - monitor CBC - po as tolerated - cardiology f/u and clearance Subjective Allergies: Coded Allergies: CHLORHEXIDINE (Verified Allergy, Unknown, 08/01/17) Subjective Abvoe notd had some Vomiting before lunch no abd pain Objective Last 24 Hour Vital Signs Date Time Temp Pulse Resp B/P (MAP) Pulse Ox O2 Delivery O2 Flow Rate FiO2 08/03/17 12:00 97.7 57 20 112/56 96 Room Air 97.7 08/03/17 09:42 97.7 08/03/17 09:13 60 142/64 08/03/17 09:12 97.7 08/03/17 08:00 73 08/03/17 08:00 97.7 60 18 142/64 95 Room Air 97.7 08/03/17 04:00 52 08/03/17 04:00 98.2 54 20 104/52 97 Room Air 98.2 08/03/17 00:00 49 08/03/17 00:00 97.0 59 20 99/51 96 Room Air 97.0 08/02/17 21:34 71 130/76 08/02/17 20:00 98.2 76 20 145/67 96 Room Air 98.2 08/02/17 20:00 72 08/02/17 16:00 63 08/02/17 16:00 97.7 78 19 129/70 98 Room Air 97.7 Intake and Output 08/02/17 08/03/17 19:00 07:00 Intake Total 770 ml Balance 770 ml IV Total 770 ml # Voids 2 4 # Bowel Movements 6 12 Laboratory Tests 08/02/17 18:10: White Blood Count 12.1H, Red Blood Count 3.14L, Hemoglobin 9.3L, Hematocrit 27.7L, Mean Corpuscular Volume 88, Mean Corpuscular Hemoglobin 29.7, Mean Corpuscular Hemoglobin Concent 33.6, Red Cell Distribution Width 12.0, Platelet Count 395, Mean Platelet Volume 6.0L, Neutrophils (%) (Auto) 65.8, Lymphocytes ( %) (Auto) 18.9L, Monocytes (%) (Auto) 12.3H, Eosinophils (%) (Auto) 1.9, Basophils (%) (Auto) 1.1, Sodium Level 136, Potassium Level 4.7, Chloride Level 108H, Carbon Dioxide Level 19L, Anion Gap 9, Blood Urea Nitrogen 39H, Creatinine 1.8H, Estimat Glomerular Filtration Rate , Glucose Level 110H, Calcium Level 8.0L 08/02/17 19:10: Prothrombin Time 11.2, Prothromb Time International Ratio 1.1 08/03/17 07:00: Stool Occult Blood [Pending] 08/03/17 08:00: Sodium Level 137, Potassium Level 4.9, Chloride Level 106, Carbon Dioxide Level 22, Anion Gap 9, Blood Urea Nitrogen 39H, Creatinine 1.9H, Estimat Glomerular Filtration Rate , Glucose Level 125H, Calcium Level 8.1L, Troponin I 0.081H, Pro -B-Type Natriuretic Peptide 764H, Triglycerides Level 85, Cholesterol Level 88, LDL Cholesterol 44, HDL Cholesterol 35L, Cholesterol/HDL Ratio 2.5L Height (Feet): 6 Height (Inches): 2.00 Weight (Pounds): 175 Objective WDWN NCAT supple CTA RRR abd soft NT ND no edema Non focal BRENDAN MARTÍNEZ Aug 03, 2017 13:49
--- NOTE | 2017-08-03 15:01 | General Progress Note ---
Assessment/Plan Problem List: (1) Acute GI bleeding ICD Codes: K92.2 - Gastrointestinal hemorrhage, unspecified SNOMED: 44923633 (2) Acute blood loss anemia ICD Codes: D62 - Acute posthemorrhagic anemia SNOMED: 176367617 (3) STEPHANIE on CKD (4) Elevated troponin ICD Codes: R74.8 - Abnormal levels of other serum enzymes SNOMED: 687217325, 353047964, 586609248 (5) DM2 (diabetes mellitus, type 2) ICD Codes: E11.9 - Type 2 diabetes mellitus without complications SNOMED: 09576014 (6) HTN (hypertension) ICD Codes: I10 - Essential (primary) hypertension SNOMED: 72009868 (7) HLD (hyperlipidemia) ICD Codes: E78.5 - Hyperlipidemia, unspecified SNOMED: 99911722 (8) BPH (benign prostatic hyperplasia) ICD Codes: N40.0 - Benign prostatic hyperplasia without lower urinary tract symptoms SNOMED: 337939602 (9) CAD (coronary artery disease) ICD Codes: I25.10 - Atherosclerotic heart disease of [place] coronary artery without angina pectoris SNOMED: 87922517 (10) Dementia ICD Codes: F03.90 - Unspecified dementia without behavioral disturbance SNOMED: 19410404 (11) Parkinsonism ICD Codes: G20 - Parkinson's disease SNOMED: 32790429 (12) CVA (cerebral vascular accident) ICD Codes: I63.9 - Cerebral infarction, unspecified SNOMED: 232050602 (13) Chronic diastolic heart failure ICD Codes: I50.32 - Chronic diastolic (congestive) heart failure SNOMED: 528896414 Status: stable Assessment/Plan Possibly lower GI bleed 2/2 diverticulosis vs AVMs vs hemorrhoids, or upper GI bleed 2/2 PUD Elevated troponin likely 2/2 renal insufficiency GI consulted--plan for EGD/colo Mon once cleared by cardiology PPI IV BID CLD today Bowel prep ordered per GI Trend CBC, transfuse for hgb<7.5 or active bleeding Start IV venofer for Fe def anemia Trop neg x3. TTE w/ normal EF. Per cardiology, pt is cleared for EGD/colo Cardiology consulted Hold plavix given concern for bleed Hold lisinopril and torsemide given STEPHANIE IVFs Trend BMP Pain control, bowel regimen Supportive care DVT Prophylaxis: SCD Code Status: DNR/DNI Hospital Classification Declaration: Based on this initial evaluation, and depending on the patient's clinical course, I anticipate that this patient will require hospitalization for 2-3 days for acute GI bleed and close respiratory/ hemodynamic monitoring. Disposition: Once the patient is stable to leave the hospital, I anticipate the patient will likely be discharged to the following environment: back to SNF I spent 41 minutes on this patient's case, and >50% was dedicated to counseling and/or care coordination. Discussed with patient/family, nursing staff, SW/CM, GI, cardiology regarding clinical status, treatment course, and disposition planning. Time of note may not reflect time of encounter. Subjective Date patient seen: Aug 03, 2017 Time patient seen: 15:01 ROS Limited/Unobtainable: No Constitutional: Reports: no symptoms HEENT: Reports: no symptoms Cardiovascular: Reports: no symptoms Respiratory: Reports: no symptoms Gastrointestinal/Abdominal: Reports: abdominal pain, black stools, rectal bleeding Genitourinary: Reports: no symptoms Neurologic/Psychiatric: Reports: no symptoms Endocrine: Reports: no symptoms Hematologic/Lymphatic: Reports: no symptoms Allergies: Coded Allergies: CHLORHEXIDINE (Verified Allergy, Unknown, 08/01/17) Subjective No acute o/n events +Black tarry BM this AM. D/w GI and EGD planned for Mon. Pt notes improvement in abd pain. Denies f/c, n/v, d/c, chest pain, SOB Objective Last 24 Hour Vital Signs Date Time Temp Pulse Resp B/P (MAP) Pulse Ox O2 Delivery O2 Flow Rate FiO2 08/03/17 12:00 97.7 57 20 112/56 96 Room Air 97.7 08/03/17 12:00 52 08/03/17 09:42 97.7 08/03/17 09:13 60 142/64 08/03/17 09:12 97.7 08/03/17 08:00 73 08/03/17 08:00 97.7 60 18 142/64 95 Room Air 97.7 08/03/17 04:00 52 08/03/17 04:00 98.2 54 20 104/52 97 Room Air 98.2 08/03/17 00:00 49 08/03/17 00:00 97.0 59 20 99/51 96 Room Air 97.0 08/02/17 21:34 71 130/76 08/02/17 20:00 98.2 76 20 145/67 96 Room Air 98.2 08/02/17 20:00 72 08/02/17 16:00 63 08/02/17 16:00 97.7 78 19 129/70 98 Room Air 97.7 Intake and Output 08/02/17 08/03/17 19:00 07:00 Intake Total 770 ml Balance 770 ml IV Total 770 ml # Voids 2 4 # Bowel Movements 6 12 Laboratory Tests 08/02/17 18:10: White Blood Count 12.1H, Red Blood Count 3.14L, Hemoglobin 9.3L, Hematocrit 27.7L, Mean Corpuscular Volume 88, Mean Corpuscular Hemoglobin 29.7, Mean Corpuscular Hemoglobin Concent 33.6, Red Cell Distribution Width 12.0, Platelet Count 395, Mean Platelet Volume 6.0L, Neutrophils (%) (Auto) 65.8, Lymphocytes ( %) (Auto) 18.9L, Monocytes (%) (Auto) 12.3H, Eosinophils (%) (Auto) 1.9, Basophils (%) (Auto) 1.1, Sodium Level 136, Potassium Level 4.7, Chloride Level 108H, Carbon Dioxide Level 19L, Anion Gap 9, Blood Urea Nitrogen 39H, Creatinine 1.8H, Estimat Glomerular Filtration Rate , Glucose Level 110H, Calcium Level 8.0L 08/02/17 19:10: Prothrombin Time 11.2, Prothromb Time International Ratio 1.1 08/03/17 07:00: Stool Occult Blood [Pending] 08/03/17 08:00: Sodium Level 137, Potassium Level 4.9, Chloride Level 106, Carbon Dioxide Level 22, Anion Gap 9, Blood Urea Nitrogen 39H, Creatinine 1.9H, Estimat Glomerular Filtration Rate , Glucose Level 125H, Calcium Level 8.1L, Troponin I 0.081H, Pro -B-Type Natriuretic Peptide 764H, Triglycerides Level 85, Cholesterol Level 88, LDL Cholesterol 44, HDL Cholesterol 35L, Cholesterol/HDL Ratio 2.5L Height (Feet): 6 Height (Inches): 2.00 Weight (Pounds): 175 Objective General: alert, cooperative, no distress, appears stated age Head: normocephalic, without obvious abnormality, atraumatic Eyes: conjunctivae/corneas clear. PERRL, EOM's intact Throat: lips, mucosa, and tongue normal. MMM Neck: supple, symmetrical, trachea midline, and no JVD Lungs: clear to auscultation bilaterally Heart: regular rate and rhythm, S1, S2 normal, no murmur, click, rub or gallop Abdomen: soft, mild TTP, non-distended, bowel sounds normal Extremities: extremities normal, atraumatic, no cyanosis or edema Pulses: 2+ and symmetric Skin: skin color, texture, turgor normal; no rashes or lesions Neurologic: grossly normal, no focal deficits Sherry Mccoy M.D. Aug 03, 2017 15:01
--- NOTE | 2017-08-03 15:42 | Cardiac Electrophysiology PN ---
Assessment/Plan Assessment/Plan 1. Elevated troponin of 0.1, 0.1 and 0.08. EKG showed sinus rhythm, but no acute ST-T wave abnormalities and the patient does not have any chest pain. Levels are flat. Elevated troponin due to renal failure with the creatinine of 2.1. In the meantime. Continue beta-efe. Avoid aspirin in view of gastrointestinal bleed. Echo NL EF. OK to proceed with endoscopy 2. Hypertension. The patient is on Procardia XL 90 mg daily and Lopressor 25 mg b.i.d. 3. Hyperlipidemia. On Lipitor. 4. Rectal bleed. Further evaluation by Gastroenterology.OK to proceed with endoscopy 5. Diabetes. On insulin. 6. Benign prostatic hypertrophy. On Flomax. 7. Dementia. On Aricept. DW Dr Powell Subjective Subjective Comfortable no chest pain or SOB. Objective Last 24 Hour Vital Signs Date Time Temp Pulse Resp B/P (MAP) Pulse Ox O2 Delivery O2 Flow Rate FiO2 08/03/17 12:00 97.7 57 20 112/56 96 Room Air 97.7 08/03/17 12:00 52 08/03/17 09:42 97.7 08/03/17 09:13 60 142/64 08/03/17 09:12 97.7 08/03/17 08:00 73 08/03/17 08:00 97.7 60 18 142/64 95 Room Air 97.7 08/03/17 04:00 52 08/03/17 04:00 98.2 54 20 104/52 97 Room Air 98.2 08/03/17 00:00 49 08/03/17 00:00 97.0 59 20 99/51 96 Room Air 97.0 08/02/17 21:34 71 130/76 08/02/17 20:00 98.2 76 20 145/67 96 Room Air 98.2 08/02/17 20:00 72 08/02/17 16:00 63 08/02/17 16:00 97.7 78 19 129/70 98 Room Air 97.7 Intake and Output 08/02/17 08/03/17 19:00 07:00 Intake Total 770 ml Balance 770 ml IV Total 770 ml # Voids 2 4 # Bowel Movements 6 12 Laboratory Tests Test 08/02/17 18:10 08/02/17 19:10 08/03/17 07:00 08/03/17 08:00 White Blood Count 12.1 K/UL (4.8-10.8) H Red Blood Count 3.14 M/UL (4.70-6.10) L Hemoglobin 9.3 G/DL (14.2-18.0) L Hematocrit 27.7 % (42.0-52.0) L Mean Corpuscular Volume 88 FL (80-99) Mean Corpuscular Hemoglobin 29.7 PG (27.0-31.0) Mean Corpuscular Hemoglobin Concent 33.6 G/DL (32.0-36.0) Red Cell Distribution Width 12.0 % (11.6-14.8) Platelet Count 395 K/UL (150-450) Mean Platelet Volume 6.0 FL (6.5-10.1) L Neutrophils (%) (Auto) 65.8 % (45.0-75.0) Lymphocytes (%) (Auto) 18.9 % (20.0-45.0) L Monocytes (%) (Auto) 12.3 % (1.0-10.0) H Eosinophils (%) (Auto) 1.9 % (0.0-3.0) Basophils (%) (Auto) 1.1 % (0.0-2.0) Sodium Level 136 MMOL/L (136-145) 137 MMOL/L (136-145) Potassium Level 4.7 MMOL/L (3.5-5.1) 4.9 MMOL/L (3.5-5.1) Chloride Level 108 MMOL/L (98-107) H 106 MMOL/L (98-107) Carbon Dioxide Level 19 MMOL/L (21-32) L 22 MMOL/L (21-32) Anion Gap 9 mmol/L (5-15) 9 mmol/L (5-15) Blood Urea Nitrogen 39 mg/dL (7-18) H 39 mg/dL (7-18) H Creatinine 1.8 MG/DL (0.55-1.30) H 1.9 MG/DL (0.55-1.30) H Estimat Glomerular Filtration Rate mL/min (>60) mL/min (>60) Glucose Level 110 MG/DL (74-106) H 125 MG/DL (74-106) H Calcium Level 8.0 MG/DL (8.5-10.1) L 8.1 MG/DL (8.5-10.1) L Prothrombin Time 11.2 SEC (9.30-11.50) Prothromb Time International Ratio 1.1 (0.9-1.1) Stool Occult Blood Pending Troponin I 0.081 ng/mL (0.000-0.056) Pro-B-Type Natriuretic Peptide 764 pg/mL (0-125) H Triglycerides Level 85 MG/DL (30-150) Cholesterol Level 88 MG/DL (< 200) LDL Cholesterol 44 mg/dL (<100) HDL Cholesterol 35 MG/DL (40-60) L Cholesterol/HDL Ratio 2.5 (3.3-4.4) L Microbiology Date/Time Source Procedure Growth Status 08/01/17 21:30 Nasal Nares MRSA Culture - Final NO METHICILLIN RESISTANT STAPH AUREUS... Complete 08/01/17 21:30 Rectum VRE Culture - Final NO VANCOMYCIN RESISTANT ENTEROCOCCUS ... Complete Objective HEAD AND NECK: Showed no JVD. LUNGS: Clear. CARDIOVASCULAR: Regular S1 and S2 with no gallop or murmur. ABDOMEN: Soft and nontender. EXTREMITIES: No pitting edema. Reyes Solomon MD Aug 03, 2017 15:42
[2017-08-03 16:00] VITALS: BP 102/45
[2017-08-03 20:00] VITALS: BP 137/65
[2017-08-03] MEDS: Atorvastatin 80mg tab ORAL SCH (20:48)
[2017-08-03] MEDS: Tamsulosin 0.4mg cap ORAL SCH (20:48)
[2017-08-04] VITALS: BP 115/46
[2017-08-04 04:00] VITALS: BP 101/42
--- NOTE | 2017-08-04 04:15 | Consultation ---
DATE OF CONSULTATION: 08/03/2017 HEMATOLOGY/ONCOLOGY CONSULTATION CONSULTING PHYSICIAN: Efrain Lake M.D. REQUESTING PHYSICIANS: 1. Lawrence Francis M.D. 2. Sherry Mccoy M.D. REASON FOR CONSULTATION: Evaluation of prostate cancer in addition to ongoing anemia. IDENTIFICATION DATA: Dear Dr. Francis and Dr. Powell: The patient is a pleasant 82-year-old male with past medical history significant for hypertension, type 2 diabetes mellitus, and CAD with dementia, at this time presents to the hospital, admitted with elevated troponin, and had evidence of recurrent bleeding. GI service was consulted for evaluation. Dr. Montoya has seen the patient. According to the patient, he had similar symptoms about five years ago. At this time, continues to be anemic. The patient most likely will need endoscopy, colonoscopy, and clearance Saturday holding off any anticoagulation at this time. Anemia workup ordered and Hematology Service was consulted for clearance as well. PAST MEDICAL HISTORY: Hypertension, type 2 diabetes, CAD, and dementia. SOCIAL HISTORY: Lives in a fpc. No alcohol, tobacco, or illicit drug use. FAMILY HISTORY: Noncontributory. REVIEW OF SYSTEMS: CONSTITUTIONAL: No fevers, chills, or night sweats. SKIN: No rashes, bumps, or itching. HEENT: No headache, hearing or vision changes. BREASTS: No lumps, pain, or discharge. PULMONARY: No cough, sputum, or shortness of breath. GASTROINTESTINAL: No nausea, vomiting, or diarrhea. GENITOURINARY: No dysuria, frequency, or urgency. MUSCULOSKELETAL: No joint swelling, muscle pain, or trauma. PHYSICAL EXAMINATION: VITAL SIGNS: Reviewed. GENERAL: No distress. PULMONARY: Decreased breath sounds. CARDIOVASCULAR: Regular rate. No S3 or S4. ABDOMEN: Soft, nontender, and nondistended. EXTREMITIES: No cyanosis, swelling, or edema noted. LABORATORY DATA: WBC of 10.1, hemoglobin 9.3, hematocrit 28, and platelet count . Chemistry reviewed. BUN of 39 and creatinine 1.9. Troponin is 0.08. We will order for anemia workup at this time. Anemia workup, has not had one performed here at the [facility]. ASSESSMENT AND PLAN: 1. Leukocytosis, likely secondary to reactive process. Continue to closely monitor. 2. Prostate cancer versus benign prostatic hypertrophy. Obtain PSA value. 3. Anemia due to underlying gastrointestinal bleed. Okay to proceed with endoscopy as per Cardiology Service. 4. Elevated troponin. On a beta-efe. Currently without any chest pain. 5. Benign prostatic hypertrophy. On Flomax. I appreciate the consultation. Efrain Lake M.D. DR: LYUDMILA JOB#: [id number] CC:
[2017-08-04] MEDS: NovoLOG Insulin Flexpen SUBQ SCH ×4 (06:08→21:05)
[2017-08-04] MEDS: sitaGLIPtin 25mg tab ORAL SCH (06:09)
[2017-08-04 06:47] LABS: FERRITIN 260 NG/ML (8-388); LACTATE DEHYDROGENASE 127 U/L (81-234)
[2017-08-04 06:57] LABS: HEMATOCRIT 23.5 % (42.0-52.0); MEAN CORPUSCULAR VOLUME 90 FL (80-99); PLATELET COUNT 312 K/UL (150-450); RED BLOOD COUNT 2.62 M/UL (4.70-6.10)
[2017-08-04 07:03] LABS: % IRON SATURATION 14 % (15-50); IRON 23 ug/dL (50-175); TOTAL IRON BINDING CAPACITY 165 ug/dL (250-450)
[2017-08-04 08:00] VITALS: BP 138/60
[2017-08-04] MEDS: Torsemide 10mg tab ORAL SCH (09:40)
[2017-08-04] MEDS: Docusate 100mg cap ORAL SCH ×2 (09:41→18:06)
[2017-08-04] MEDS: Vitamin D 1000 IU Tab ORAL SCH (09:44)
[2017-08-04] MEDS: Donepezil 5mg Tab ORAL SCH (09:44)
[2017-08-04] MEDS: Metoprolol Tartrate 12.5mg TAB ORAL SCH ×2 (09:44→20:58)
[2017-08-04] MEDS: Levodopa/Carbidopa 25/100 tab ORAL SCH ×3 (09:44→18:06)
[2017-08-04] MEDS: Paricalcitol 1mcg cap ORAL SCH ×3 (09:45→18:06)
[2017-08-04] MEDS: Pantoprazole Inj IVP SCH ×2 (09:45→20:55)
[2017-08-04 12:00] VITALS: BP 131/57
--- NOTE | 2017-08-04 13:25 | General Progress Note ---
Assessment/Plan Assessment/Plan Assessment - rectal bleeding - Anemia - Elevated troponin - OBS - DM Recommendations - monitor CBC - may need transfusion - po as tolerated - cardiology f/u and clearance Subjective Allergies: Coded Allergies: CHLORHEXIDINE (Verified Allergy, Unknown, 08/01/17) Subjective Above noted no further vomiting tolerating PO Objective Last 24 Hour Vital Signs Date Time Temp Pulse Resp B/P (MAP) Pulse Ox O2 Delivery O2 Flow Rate FiO2 08/04/17 09:44 56 138/60 08/04/17 08:00 97.7 56 16 138/60 100 Room Air 97.7 08/04/17 04:00 97.7 54 16 101/42 95 Room Air 97.7 08/04/17 04:00 46 08/04/17 00:00 45 08/04/17 00:00 97.5 50 18 115/46 95 Room Air 97.5 08/03/17 20:49 53 137/65 08/03/17 20:00 97.2 53 16 137/65 97 97.2 08/03/17 20:00 Room Air 08/03/17 20:00 53 08/03/17 16:00 97.7 48 20 102/45 100 Room Air 97.7 08/03/17 16:00 48 Intake and Output 08/03/17 08/04/17 19:00 07:00 Intake Total 120 ml 120 ml Output Total 350 ml Balance -230 ml 120 ml Intake Oral 120 ml 120 ml Output Urine Total 350 ml # Voids 2 # Bowel Movements 1 2 Laboratory Tests 08/03/17 22:00: Stool Occult Blood Negative 08/04/17 05:45: White Blood Count 9.0, Red Blood Count 2.62L, Hemoglobin 8.0L, Hematocrit 23.5L , Mean Corpuscular Volume 90, Mean Corpuscular Hemoglobin 30.5, Mean Corpuscular Hemoglobin Concent 34.0, Red Cell Distribution Width 12.0, Platelet Count 312, Mean Platelet Volume 6.3L, Neutrophils (%) (Auto) , Lymphocytes (%) ( Auto) , Monocytes (%) (Auto) , Eosinophils (%) (Auto) , Basophils (%) (Auto) , Differential Total Cells Counted 100, Neutrophils % (Manual) 66, Lymphocytes % ( Manual) 21, Monocytes % (Manual) 12H, Eosinophils % (Manual) 1, Basophils % ( Manual) 0, Band Neutrophils 0, Platelet Estimate Adequate, Platelet Morphology Normal, Hypochromasia 1+, Iron Level 23L, Total Iron Binding Capacity 165L, Percent Iron Saturation 14L, Unsaturated Iron Binding 142, Ferritin 260, Lactate Dehydrogenase 127, Prostate Specific Antigen 19.61H, Vitamin B12 Level 501, Methylmalonic Acid [Pending], Folate 15.4 Height (Feet): 6 Height (Inches): 2.00 Weight (Pounds): 175 Objective WDWN NCAT supple CTA RRR abd soft NT ND no edema Non focal BRENDAN MARTÍNEZ Aug 04, 2017 13:25
[2017-08-04] MEDS ORDERED: Nulytely 4L ORAL ONE (14:00)
[2017-08-04 16:00] VITALS: BP 120/52
[2017-08-04 20:06] VITALS: BP 153/65
[2017-08-04] MEDS: Tamsulosin 0.4mg cap ORAL SCH (20:55)
[2017-08-04] MEDS: Atorvastatin 80mg tab ORAL SCH (20:55)
[2017-08-04] MEDS: Iron Sucrose 100 MG in NS 55 ML IV SCH (20:55)
--- NOTE | 2017-08-04 21:30 | General Progress Note ---
Assessment/Plan Problem List: (1) Acute GI bleeding ICD Codes: K92.2 - Gastrointestinal hemorrhage, unspecified SNOMED: 09578258 (2) Acute blood loss anemia ICD Codes: D62 - Acute posthemorrhagic anemia SNOMED: 134856859 (3) STEPHANIE on CKD (4) Elevated troponin ICD Codes: R74.8 - Abnormal levels of other serum enzymes SNOMED: 184598294, 940286974, 278758874 (5) DM2 (diabetes mellitus, type 2) ICD Codes: E11.9 - Type 2 diabetes mellitus without complications SNOMED: 30191002 (6) HTN (hypertension) ICD Codes: I10 - Essential (primary) hypertension SNOMED: 58618695 (7) HLD (hyperlipidemia) ICD Codes: E78.5 - Hyperlipidemia, unspecified SNOMED: 52477576 (8) BPH (benign prostatic hyperplasia) ICD Codes: N40.0 - Benign prostatic hyperplasia without lower urinary tract symptoms SNOMED: 867051738 (9) CAD (coronary artery disease) ICD Codes: I25.10 - Atherosclerotic heart disease of [place] coronary artery without angina pectoris SNOMED: 36686841 (10) Dementia ICD Codes: F03.90 - Unspecified dementia without behavioral disturbance SNOMED: 31483101 (11) Parkinsonism ICD Codes: G20 - Parkinson's disease SNOMED: 90927572 (12) CVA (cerebral vascular accident) ICD Codes: I63.9 - Cerebral infarction, unspecified SNOMED: 082280490 (13) Chronic diastolic heart failure ICD Codes: I50.32 - Chronic diastolic (congestive) heart failure SNOMED: 216809025 Status: stable Assessment/Plan Possibly lower GI bleed 2/2 diverticulosis vs AVMs vs hemorrhoids, or upper GI bleed 2/2 PUD Elevated troponin likely 2/2 renal insufficiency GI consulted--plan for EGD/colo tomrrow PPI IV BID CLD today, NPO at [facility] Bowel prep ordered per GI Trend CBC, transfuse for hgb<7.5 or active bleeding IV venofer for Fe def anemia Trop neg x3. TTE w/ normal EF. Per cardiology, pt is cleared for EGD/colo Cardiology consulted Hold plavix given concern for bleed Hold lisinopril and torsemide given STEPHANIE IVFs Trend BMP Pain control, bowel regimen Supportive care DVT Prophylaxis: SCD Code Status: DNR/DNI Hospital Classification Declaration: Based on this initial evaluation, and depending on the patient's clinical course, I anticipate that this patient will require hospitalization for 1-2 days for acute GI bleed and close respiratory/ hemodynamic monitoring. Disposition: Once the patient is stable to leave the hospital, I anticipate the patient will likely be discharged to the following environment: back to SNF I spent 40 minutes on this patient's case, and >50% was dedicated to counseling and/or care coordination. Discussed with patient/family, nursing staff, SW/CM, GI, cardiology regarding clinical status, treatment course, and disposition planning. D/w GI re plan for EGD and colo tomorow Time of note may not reflect time of encounter. Subjective Date patient seen: Aug 04, 2017 Time patient seen: 14:00 ROS Limited/Unobtainable: No Allergies: Coded Allergies: CHLORHEXIDINE (Verified Allergy, Unknown, 08/01/17) Subjective No acute o/n events Plan for EGD and colo tomorrow Pt notes improvement in abd pain. Denies f/c, n/v, d/c, chest pain, SOB D/w nephew at bedside Objective Last 24 Hour Vital Signs Date Time Temp Pulse Resp B/P (MAP) Pulse Ox O2 Delivery O2 Flow Rate FiO2 08/04/17 20:58 71 153/70 08/04/17 20:06 97.2 71 20 153/65 93 Room Air 97.2 08/04/17 16:10 64 08/04/17 16:00 97.2 57 16 120/52 98 Room Air 97.2 08/04/17 12:00 97.0 55 18 131/57 97 Room Air 97.0 08/04/17 11:54 65 08/04/17 09:44 56 138/60 08/04/17 08:02 51 08/04/17 08:00 97.7 56 16 138/60 100 Room Air 97.7 08/04/17 04:00 97.7 54 16 101/42 95 Room Air 97.7 08/04/17 04:00 46 08/04/17 00:00 45 08/04/17 00:00 97.5 50 18 115/46 95 Room Air 97.5 Intake and Output 08/03/17 08/04/17 19:00 07:00 Intake Total 120 ml 120 ml Output Total 350 ml Balance -230 ml 120 ml Intake Oral 120 ml 120 ml Output Urine Total 350 ml # Voids 2 # Bowel Movements 1 2 Laboratory Tests 08/03/17 22:00: Stool Occult Blood Negative 08/04/17 05:45: White Blood Count 9.0, Red Blood Count 2.62L, Hemoglobin 8.0L, Hematocrit 23.5L , Mean Corpuscular Volume 90, Mean Corpuscular Hemoglobin 30.5, Mean Corpuscular Hemoglobin Concent 34.0, Red Cell Distribution Width 12.0, Platelet Count 312, Mean Platelet Volume 6.3L, Neutrophils (%) (Auto) , Lymphocytes (%) ( Auto) , Monocytes (%) (Auto) , Eosinophils (%) (Auto) , Basophils (%) (Auto) , Differential Total Cells Counted 100, Neutrophils % (Manual) 66, Lymphocytes % ( Manual) 21, Monocytes % (Manual) 12H, Eosinophils % (Manual) 1, Basophils % ( Manual) 0, Band Neutrophils 0, Platelet Estimate Adequate, Platelet Morphology Normal, Hypochromasia 1+, Iron Level 23L, Total Iron Binding Capacity 165L, Percent Iron Saturation 14L, Unsaturated Iron Binding 142, Ferritin 260, Lactate Dehydrogenase 127, Prostate Specific Antigen 19.61H, Vitamin B12 Level 501, Methylmalonic Acid [Pending], Folate 15.4 Height (Feet): 6 Height (Inches): 2.00 Weight (Pounds): 175 Objective General: alert, cooperative, no distress, appears stated age Head: normocephalic, without obvious abnormality, atraumatic Eyes: conjunctivae/corneas clear. PERRL, EOM's intact Throat: lips, mucosa, and tongue normal. MMM Neck: supple, symmetrical, trachea midline, and no JVD Lungs: clear to auscultation bilaterally Heart: regular rate and rhythm, S1, S2 normal, no murmur, click, rub or gallop Abdomen: soft, mild TTP, non-distended, bowel sounds normal Extremities: extremities normal, atraumatic, no cyanosis or edema Pulses: 2+ and symmetric Skin: skin color, texture, turgor normal; no rashes or lesions Neurologic: grossly normal, no focal deficits Sherry Mccoy M.D. Aug 04, 2017 21:30
[2017-08-05] VITALS: BP 115/62
--- NOTE | 2017-08-05 01:31 | General Progress Note ---
Assessment/Plan Assessment/Plan 1. Leukocytosis, likely secondary to reactive process. --> Continue to closely monitor. --> Improved from yesterday and resolved at this time. 2. Prostate cancer versus benign prostatic hypertrophy. --> PSA level has been reviewed. Currently 20. 3. Anemia due to underlying gastrointestinal bleed. --> Okay to proceed with endoscopy as per Cardiology Service. --> Transfuse if hemoglobin <7.5 --> Hemoglobin levels downtrended from yesterday. 4. Elevated troponin. --> On a beta-efe. Currently without any chest pain. 5. Benign prostatic hypertrophy. On Flomax. 6. Hypertension. On Procardia XL and Lopressor. 7. Hyperlipidemia. On lipitor. 8. Diabetes. On insulin sliding scale. 9. Dementia. On aricept Subjective Date patient seen: Aug 04, 2017 Constitutional: Denies: no symptoms, chills, diaphoresis, fever, malaise, weakness, other HEENT: Denies: no symptoms, eye pain, blurred vision, tearing, double vision, ear pain, ear discharge, nose pain, nose congestion, throat pain, throat swelling, mouth pain, mouth swelling, other Cardiovascular: Denies: no symptoms, chest pain, edema, irregular heart rate, lightheadedness, palpitations, syncope, other Respiratory: Denies: no symptoms, cough, orthopnea, shortness of breath, SOB with excertion, SOB at rest, sputum, stridor, wheezing, other Gastrointestinal/Abdominal: Denies: no symptoms, abdomen distended, abdominal pain, black stools, tarry stools, blood in stool, constipated, diarrhea, difficulty swallowing, nausea, poor appetite, poor fluid intake, rectal bleeding , vomiting, other Genitourinary: Denies: no symptoms, burning, discharge, frequency, flank pain, hematuria, incontinence, pain, urgency, other Neurologic/Psychiatric: Denies: no symptoms, anxiety, depressed, emotional problems, headache, numbness, paresthesia, pre-existing deficit, seizure, tingling, tremors, weakness, other Hematologic/Lymphatic: Reports: anemia Allergies: Coded Allergies: CHLORHEXIDINE (Verified Allergy, Unknown, 08/01/17) Subjective Confused. Resting in bed. Hypertensive. Objective Last 24 Hour Vital Signs Date Time Temp Pulse Resp B/P (MAP) Pulse Ox O2 Delivery O2 Flow Rate FiO2 08/05/17 00:00 58 08/05/17 00:00 98.1 56 20 115/62 98 Room Air 98.1 08/04/17 20:58 71 153/70 08/04/17 20:06 97.2 71 20 153/65 93 Room Air 97.2 08/04/17 20:00 90 08/04/17 16:10 64 08/04/17 16:00 97.2 57 16 120/52 98 Room Air 97.2 08/04/17 12:00 97.0 55 18 131/57 97 Room Air 97.0 08/04/17 11:54 65 08/04/17 09:44 56 138/60 08/04/17 08:02 51 08/04/17 08:00 97.7 56 16 138/60 100 Room Air 97.7 08/04/17 04:00 97.7 54 16 101/42 95 Room Air 97.7 08/04/17 04:00 46 Intake and Output 08/04/17 08/05/17 19:00 07:00 Intake Total 480 ml Output Total 1000 ml Balance -520 ml Intake Oral 480 ml Output Urine Total 1000 ml # Bowel Movements 4 1 Laboratory Tests 08/04/17 05:45: White Blood Count 9.0, Red Blood Count 2.62L, Hemoglobin 8.0L, Hematocrit 23.5L , Mean Corpuscular Volume 90, Mean Corpuscular Hemoglobin 30.5, Mean Corpuscular Hemoglobin Concent 34.0, Red Cell Distribution Width 12.0, Platelet Count 312, Mean Platelet Volume 6.3L, Neutrophils (%) (Auto) , Lymphocytes (%) ( Auto) , Monocytes (%) (Auto) , Eosinophils (%) (Auto) , Basophils (%) (Auto) , Differential Total Cells Counted 100, Neutrophils % (Manual) 66, Lymphocytes % ( Manual) 21, Monocytes % (Manual) 12H, Eosinophils % (Manual) 1, Basophils % ( Manual) 0, Band Neutrophils 0, Platelet Estimate Adequate, Platelet Morphology Normal, Hypochromasia 1+, Iron Level 23L, Total Iron Binding Capacity 165L, Percent Iron Saturation 14L, Unsaturated Iron Binding 142, Ferritin 260, Lactate Dehydrogenase 127, Prostate Specific Antigen 19.61H, Vitamin B12 Level 501, Methylmalonic Acid [Pending], Folate 15.4 Height (Feet): 6 Height (Inches): 2.00 Weight (Pounds): 175 General Appearance: confused Respiratory/Chest: decreased breath sounds Efrain Lake MD Aug 05, 2017 01:31
[2017-08-05 04:00] VITALS: BP 99/48
[2017-08-05] MEDS: sitaGLIPtin 25mg tab ORAL SCH (06:01)
[2017-08-05] MEDS: NovoLOG Insulin Flexpen SUBQ SCH ×4 (06:02→21:21)
[2017-08-05 08:00] VITALS: BP 147/68
[2017-08-05] MEDS: Paricalcitol 1mcg cap ORAL SCH ×3 (08:15→17:12)
[2017-08-05] MEDS: Donepezil 5mg Tab ORAL SCH (08:16)
[2017-08-05] MEDS: Metoprolol Tartrate 12.5mg TAB ORAL SCH ×2 (08:16→21:22)
[2017-08-05] MEDS: Torsemide 10mg tab ORAL SCH (08:16)
[2017-08-05] MEDS: Levodopa/Carbidopa 25/100 tab ORAL SCH ×3 (08:17→17:12)
[2017-08-05] MEDS: Pantoprazole Inj IVP SCH ×2 (08:17→21:21)
[2017-08-05] MEDS: Docusate 100mg cap ORAL SCH ×2 (08:17→17:12)
[2017-08-05] MEDS: Vitamin D 1000 IU Tab ORAL SCH (08:25)
[2017-08-05 09:00] LABS: BASOPHILS % (AUTO) 0.9 % (0.0-2.0); EOSINOPHILS % (AUTO) 1.5 % (0.0-3.0); HEMATOCRIT 24.8 % (42.0-52.0); HEMOGLOBIN 8.2 G/DL (14.2-18.0); LYMPHOCYTES % (AUTO) 13.7 % (20.0-45.0); MEAN CORPUSCULAR VOLUME 91 FL (80-99); MONOCYTES % (AUTO) 12.4 % (1.0-10.0); NEUTROPHILS % (AUTO) 71.4 % (45.0-75.0); PLATELET COUNT 360 K/UL (150-450); RED BLOOD COUNT 2.73 M/UL (4.70-6.10); RED CELL DISTRIBUTION WIDTH 12.2 % (11.6-14.8); WHITE BLOOD COUNT 9.7 K/UL (4.8-10.8)
[2017-08-05 09:12] LABS: ANION GAP 8 mmol/L (5-15); BLOOD UREA NITROGEN 31 mg/dL (7-18); CALCIUM 8.4 MG/DL (8.5-10.1); CARBON DIOXIDE 25 MMOL/L (21-32); CHLORIDE 105 MMOL/L (98-107); CREATININE 1.7 MG/DL (0.55-1.30); POTASSIUM 4.6 MMOL/L (3.5-5.1); SODIUM 138 MMOL/L (136-145)
--- NOTE | 2017-08-05 09:49 | Cardiac Electrophysiology PN ---
Assessment/Plan Assessment/Plan 1. Elevated troponin of 0.1, 0.1 and 0.08. EKG showed sinus rhythm, but no acute ST-T wave abnormalities and the patient does not have any chest pain. Levels are flat. Elevated troponin due to renal failure with the creatinine of 2.1. In the meantime. Continue beta-efe. Avoid aspirin in view of gastrointestinal bleed.Echo NL EF. 2. Hypertension. The patient is on Procardia XL 90 mg daily and Lopressor 25 mg b.i.d. 3. First degree AVB 4. Rectal bleed. Further evaluation by Gastroenterology. OK to proceed with endoscopy 5. Diabetes. On insulin. 6. Benign prostatic hypertrophy. On Flomax. 7. Dementia. On Aricept. 8. Hyperlipidemia. On Lipitor. ISAAC RN Subjective Subjective Comfortable no chest pain or SOB.EGD held as no consent.Has leg pains Objective Last 24 Hour Vital Signs Date Time Temp Pulse Resp B/P (MAP) Pulse Ox O2 Delivery O2 Flow Rate FiO2 08/05/17 08:16 68 147/68 08/05/17 08:00 98.7 68 20 147/68 96 Room Air 98.7 08/05/17 04:00 98.6 63 20 99/48 96 Room Air 98.6 08/05/17 04:00 54 08/05/17 00:00 58 08/05/17 00:00 98.1 56 20 115/62 98 Room Air 98.1 08/04/17 20:58 71 153/70 08/04/17 20:06 97.2 71 20 153/65 93 Room Air 97.2 08/04/17 20:00 90 08/04/17 16:10 64 08/04/17 16:00 97.2 57 16 120/52 98 Room Air 97.2 08/04/17 12:00 97.0 55 18 131/57 97 Room Air 97.0 08/04/17 11:54 65 08/04/17 09:44 56 138/60 Intake and Output 08/04/17 08/05/17 19:00 07:00 Intake Total 480 ml 300 ml Output Total 1000 ml 550 ml Balance -520 ml -250 ml Intake Oral 480 ml IV Total 60 ml Other 240 ml Output Urine Total 1000 ml 550 ml # Voids 3 # Bowel Movements 4 4 Laboratory Tests Test 08/05/17 07:40 White Blood Count 9.7 K/UL (4.8-10.8) Red Blood Count 2.73 M/UL (4.70-6.10) L Hemoglobin 8.2 G/DL (14.2-18.0) L Hematocrit 24.8 % (42.0-52.0) L Mean Corpuscular Volume 91 FL (80-99) Mean Corpuscular Hemoglobin 30.0 PG (27.0-31.0) Mean Corpuscular Hemoglobin Concent 33.1 G/DL (32.0-36.0) Red Cell Distribution Width 12.2 % (11.6-14.8) Platelet Count 360 K/UL (150-450) Mean Platelet Volume 6.3 FL (6.5-10.1) L Neutrophils (%) (Auto) 71.4 % (45.0-75.0) Lymphocytes (%) (Auto) 13.7 % (20.0-45.0) L Monocytes (%) (Auto) 12.4 % (1.0-10.0) H Eosinophils (%) (Auto) 1.5 % (0.0-3.0) Basophils (%) (Auto) 0.9 % (0.0-2.0) Sodium Level 138 MMOL/L (136-145) Potassium Level 4.6 MMOL/L (3.5-5.1) Chloride Level 105 MMOL/L (98-107) Carbon Dioxide Level 25 MMOL/L (21-32) Anion Gap 8 mmol/L (5-15) Blood Urea Nitrogen 31 mg/dL (7-18) H Creatinine 1.7 MG/DL (0.55-1.30) H Estimat Glomerular Filtration Rate mL/min (>60) Glucose Level 103 MG/DL (74-106) Hemoglobin A1c Pending Calcium Level 8.4 MG/DL (8.5-10.1) L Objective HEAD AND NECK: Showed no JVD. LUNGS: Clear. CARDIOVASCULAR: Regular S1 and S2 with no gallop or murmur. ABDOMEN: Soft and nontender. EXTREMITIES: No pitting edema. Reyes Solomon MD Aug 05, 2017 09:49
--- NOTE | 2017-08-05 10:29 | GI Progress Note ---
Assessment/Plan Problems: (1) Acute GI bleeding ICD Codes: K92.2 - Gastrointestinal hemorrhage, unspecified SNOMED: 82100773 (2) Dementia ICD Codes: F03.90 - Unspecified dementia without behavioral disturbance SNOMED: 81421470 (3) Acute blood loss anemia ICD Codes: D62 - Acute posthemorrhagic anemia SNOMED: 743712105 Status: stable Status Narrative Discussed with Dr. Montoya. Assessment/Plan Assessment - rectal bleeding - Anemia - Elevated troponin - OBS - DM Recommendations - colonoscopy cancelled, patient had recent done at [facility] >> obtain records - monitor CBC - may need transfusion - po as tolerated - cardiology f/u and clearance Subjective Subjective denies any rectal bleeding at this time Objective Last 24 Hour Vital Signs Date Time Temp Pulse Resp B/P (MAP) Pulse Ox O2 Delivery O2 Flow Rate FiO2 08/05/17 08:16 68 147/68 08/05/17 08:00 98.7 68 20 147/68 96 Room Air 98.7 08/05/17 08:00 63 08/05/17 04:00 98.6 63 20 99/48 96 Room Air 98.6 08/05/17 04:00 54 08/05/17 00:00 58 08/05/17 00:00 98.1 56 20 115/62 98 Room Air 98.1 08/04/17 20:58 71 153/70 08/04/17 20:06 97.2 71 20 153/65 93 Room Air 97.2 08/04/17 20:00 90 08/04/17 16:10 64 08/04/17 16:00 97.2 57 16 120/52 98 Room Air 97.2 08/04/17 12:00 97.0 55 18 131/57 97 Room Air 97.0 08/04/17 11:54 65 Intake and Output 08/04/17 08/05/17 19:00 07:00 Intake Total 480 ml 300 ml Output Total 1000 ml 550 ml Balance -520 ml -250 ml Intake Oral 480 ml IV Total 60 ml Other 240 ml Output Urine Total 1000 ml 550 ml # Voids 3 # Bowel Movements 4 4 Laboratory Tests Test 08/05/17 07:40 White Blood Count 9.7 K/UL (4.8-10.8) Red Blood Count 2.73 M/UL (4.70-6.10) L Hemoglobin 8.2 G/DL (14.2-18.0) L Hematocrit 24.8 % (42.0-52.0) L Mean Corpuscular Volume 91 FL (80-99) Mean Corpuscular Hemoglobin 30.0 PG (27.0-31.0) Mean Corpuscular Hemoglobin Concent 33.1 G/DL (32.0-36.0) Red Cell Distribution Width 12.2 % (11.6-14.8) Platelet Count 360 K/UL (150-450) Mean Platelet Volume 6.3 FL (6.5-10.1) L Neutrophils (%) (Auto) 71.4 % (45.0-75.0) Lymphocytes (%) (Auto) 13.7 % (20.0-45.0) L Monocytes (%) (Auto) 12.4 % (1.0-10.0) H Eosinophils (%) (Auto) 1.5 % (0.0-3.0) Basophils (%) (Auto) 0.9 % (0.0-2.0) Sodium Level 138 MMOL/L (136-145) Potassium Level 4.6 MMOL/L (3.5-5.1) Chloride Level 105 MMOL/L (98-107) Carbon Dioxide Level 25 MMOL/L (21-32) Anion Gap 8 mmol/L (5-15) Blood Urea Nitrogen 31 mg/dL (7-18) H Creatinine 1.7 MG/DL (0.55-1.30) H Estimat Glomerular Filtration Rate mL/min (>60) Glucose Level 103 MG/DL (74-106) Hemoglobin A1c 6.6 % (4.3-6.0) H Calcium Level 8.4 MG/DL (8.5-10.1) L Height (Feet): 6 Height (Inches): 2.00 Weight (Pounds): 175 General Appearance: WD/WN, no apparent distress, alert, thin Cardiovascular: normal rate Respiratory/Chest: normal breath sounds, no respiratory distress Abdominal Exam: normal bowel sounds, non tender, soft Extremities: normal range of motion, non-tender Cris Cleveland N.P. Aug 05, 2017 10:29
[2017-08-05 12:00] VITALS: BP 129/56
[2017-08-05 16:00] VITALS: BP 130/70
[2017-08-05 20:00] VITALS: BP 155/63
[2017-08-05] MEDS: Iron Sucrose 100 MG in NS 55 ML IV SCH (21:21)
[2017-08-05] MEDS: Tamsulosin 0.4mg cap ORAL SCH (21:21)
[2017-08-05] MEDS: Atorvastatin 80mg tab ORAL SCH (21:21)
--- NOTE | 2017-08-05 23:44 | General Progress Note ---
Assessment/Plan Assessment/Plan 1. Leukocytosis, likely secondary to reactive process. --> Continue to closely monitor. --> Improved from yesterday and resolved at this time. 2. Prostate cancer versus benign prostatic hypertrophy. --> PSA level has been reviewed. Currently 20. 3. Anemia due to underlying gastrointestinal bleed. --> Okay to proceed with endoscopy as per Cardiology Service. --> Transfuse if hemoglobin <7.5 --> Hemoglobin levels remain above goal. Does not need transfusion at this time. --> No occult blood seen in most recent exam 4. Elevated troponin. --> On a beta-efe. Currently without any chest pain. 5. Benign prostatic hypertrophy. On Flomax. 6. Hypertension. On Procardia XL and Lopressor. 7. Hyperlipidemia. On lipitor. 8. Diabetes. On insulin sliding scale. 9. Dementia. On aricept Subjective Date patient seen: Aug 05, 2017 Constitutional: Denies: no symptoms, chills, diaphoresis, fever, malaise, weakness, other HEENT: Denies: no symptoms, eye pain, blurred vision, tearing, double vision, ear pain, ear discharge, nose pain, nose congestion, throat pain, throat swelling, mouth pain, mouth swelling, other Cardiovascular: Denies: no symptoms, chest pain, edema, irregular heart rate, lightheadedness, palpitations, syncope, other Respiratory: Denies: no symptoms, cough, orthopnea, shortness of breath, SOB with excertion, SOB at rest, sputum, stridor, wheezing, other Gastrointestinal/Abdominal: Denies: no symptoms, abdomen distended, abdominal pain, black stools, tarry stools, blood in stool, constipated, diarrhea, difficulty swallowing, nausea, poor appetite, poor fluid intake, rectal bleeding , vomiting, other Genitourinary: Denies: no symptoms, burning, discharge, frequency, flank pain, hematuria, incontinence, pain, urgency, other Neurologic/Psychiatric: Denies: no symptoms, anxiety, depressed, emotional problems, headache, numbness, paresthesia, pre-existing deficit, seizure, tingling, tremors, weakness, other Hematologic/Lymphatic: Reports: anemia Allergies: Coded Allergies: CHLORHEXIDINE (Verified Allergy, Unknown, 08/01/17) Subjective Confused. No hematochezia. Objective Last 24 Hour Vital Signs Date Time Temp Pulse Resp B/P (MAP) Pulse Ox O2 Delivery O2 Flow Rate FiO2 08/05/17 21:22 67 155/63 08/05/17 20:00 62 08/05/17 20:00 99.1 69 20 155/63 96 Room Air 99.1 08/05/17 16:00 57 08/05/17 16:00 97.5 74 18 130/70 96 Room Air 97.5 08/05/17 12:00 66 08/05/17 12:00 97.5 60 18 129/56 96 Room Air 97.5 08/05/17 08:16 68 147/68 08/05/17 08:00 98.7 68 20 147/68 96 Room Air 98.7 08/05/17 08:00 63 08/05/17 04:00 98.6 63 20 99/48 96 Room Air 98.6 08/05/17 04:00 54 08/05/17 00:00 58 08/05/17 00:00 98.1 56 20 115/62 98 Room Air 98.1 Intake and Output 08/04/17 08/05/17 19:00 07:00 Intake Total 480 ml 300 ml Output Total 1000 ml 550 ml Balance -520 ml -250 ml Intake Oral 480 ml IV Total 60 ml Other 240 ml Output Urine Total 1000 ml 550 ml # Voids 3 # Bowel Movements 4 4 Laboratory Tests 08/05/17 07:40: White Blood Count 9.7, Red Blood Count 2.73L, Hemoglobin 8.2L, Hematocrit 24.8L , Mean Corpuscular Volume 91, Mean Corpuscular Hemoglobin 30.0, Mean Corpuscular Hemoglobin Concent 33.1, Red Cell Distribution Width 12.2, Platelet Count 360, Mean Platelet Volume 6.3L, Neutrophils (%) (Auto) 71.4, Lymphocytes ( %) (Auto) 13.7L, Monocytes (%) (Auto) 12.4H, Eosinophils (%) (Auto) 1.5, Basophils (%) (Auto) 0.9, Sodium Level 138, Potassium Level 4.6, Chloride Level 105, Carbon Dioxide Level 25, Anion Gap 8, Blood Urea Nitrogen 31H, Creatinine 1.7H, Estimat Glomerular Filtration Rate , Glucose Level 103, Hemoglobin A1c 6.6H, Calcium Level 8.4L Height (Feet): 6 Height (Inches): 2.00 Weight (Pounds): 175 Efrain Lake MD Aug 05, 2017 23:44
[2017-08-06] VITALS: BP 114/50
[2017-08-06 04:00] VITALS: BP 120/85
[2017-08-06] MEDS: NovoLOG Insulin Flexpen SUBQ SCH ×2 (06:30→11:31)
[2017-08-06] MEDS: sitaGLIPtin 25mg tab ORAL SCH (06:55)
[2017-08-06 08:00] VITALS: BP 98/56
[2017-08-06 08:31] LABS: BASOPHILS % (AUTO) 0.8 % (0.0-2.0); EOSINOPHILS % (AUTO) 1.5 % (0.0-3.0); HEMATOCRIT 24.1 % (42.0-52.0); HEMOGLOBIN 8.2 G/DL (14.2-18.0); MEAN CORPUSCULAR VOLUME 90 FL (80-99); MONOCYTES % (AUTO) 12.7 % (1.0-10.0); PLATELET COUNT 363 K/UL (150-450); RED BLOOD COUNT 2.69 M/UL (4.70-6.10); RED CELL DISTRIBUTION WIDTH 12.1 % (11.6-14.8); WHITE BLOOD COUNT 11.1 K/UL (4.8-10.8)
--- NOTE | 2017-08-06 08:33 | General Progress Note ---
Assessment/Plan Problem List: (1) Acute GI bleeding ICD Codes: K92.2 - Gastrointestinal hemorrhage, unspecified SNOMED: 71626371 (2) Acute blood loss anemia ICD Codes: D62 - Acute posthemorrhagic anemia SNOMED: 575517286 (3) STEPHANIE on CKD (4) Elevated troponin ICD Codes: R74.8 - Abnormal levels of other serum enzymes SNOMED: 017638711, 808840988, 259049150 (5) DM2 (diabetes mellitus, type 2) ICD Codes: E11.9 - Type 2 diabetes mellitus without complications SNOMED: 28488253 (6) HTN (hypertension) ICD Codes: I10 - Essential (primary) hypertension SNOMED: 81563096 (7) HLD (hyperlipidemia) ICD Codes: E78.5 - Hyperlipidemia, unspecified SNOMED: 28463938 (8) BPH (benign prostatic hyperplasia) ICD Codes: N40.0 - Benign prostatic hyperplasia without lower urinary tract symptoms SNOMED: 975829866 (9) CAD (coronary artery disease) ICD Codes: I25.10 - Atherosclerotic heart disease of [place] coronary artery without angina pectoris SNOMED: 60215774 (10) Dementia ICD Codes: F03.90 - Unspecified dementia without behavioral disturbance SNOMED: 55866042 (11) Parkinsonism ICD Codes: G20 - Parkinson's disease SNOMED: 51064159 (12) CVA (cerebral vascular accident) ICD Codes: I63.9 - Cerebral infarction, unspecified SNOMED: 424642980 (13) Chronic diastolic heart failure ICD Codes: I50.32 - Chronic diastolic (congestive) heart failure SNOMED: 653136736 Status: stable Assessment/Plan Possibly lower GI bleed 2/2 diverticulosis vs AVMs vs hemorrhoids, or upper GI bleed 2/2 PUD Elevated troponin likely 2/2 renal insufficiency GI consulted--EGD and colo held as DPOA refused to sign consent. Pt did have recent EGD and colo at [facility] PPI IV BID Cardiac diet as tolerated Bowel prep ordered per GI Trend CBC, transfuse for hgb<7.5 or active bleeding IV venofer for Fe def anemia Trop neg x3. TTE w/ normal EF. Per cardiology, pt is cleared for EGD/colo Cardiology consulted Hold plavix given concern for bleed Hold lisinopril and torsemide given STEPHANIE IVFs Trend BMP Pain control, bowel regimen Supportive care DVT Prophylaxis: SCD Code Status: DNR/DNI Hospital Classification Declaration: Based on this initial evaluation, and depending on the patient's clinical course, I anticipate that this patient will require hospitalization for 1-2 days for acute GI bleed and close respiratory/ hemodynamic monitoring. Disposition: Once the patient is stable to leave the hospital, I anticipate the patient will likely be discharged to the following environment: back to SNF I spent 38 minutes on this patient's case, and >50% was dedicated to counseling and/or care coordination. Discussed with patient/family, nursing staff, SW/CM, GI, cardiology regarding clinical status, treatment course, and disposition planning. D/w GI re holding scope, conservative mgmt Time of note may not reflect time of encounter. Subjective Date patient seen: Aug 05, 2017 Time patient seen: 12:00 ROS Limited/Unobtainable: No Constitutional: Reports: no symptoms HEENT: Reports: no symptoms Cardiovascular: Reports: no symptoms Respiratory: Reports: no symptoms Gastrointestinal/Abdominal: Reports: abdominal pain, black stools, tarry stools Genitourinary: Reports: no symptoms Neurologic/Psychiatric: Reports: no symptoms Endocrine: Reports: no symptoms Hematologic/Lymphatic: Reports: no symptoms Allergies: Coded Allergies: CHLORHEXIDINE (Verified Allergy, Unknown, 08/01/17) Subjective No acute o/n events Melena yesterday Hgb 8.2 DPOA refusing EGD and colo as pt had recent one at [facility] Pt notes improvement in abd pain. Denies f/c, n/v, d/c, chest pain, SOB D/w DPOA Objective Last 24 Hour Vital Signs Date Time Temp Pulse Resp B/P (MAP) Pulse Ox O2 Delivery O2 Flow Rate FiO2 08/06/17 04:00 97.7 80 20 120/85 99 Room Air 97.7 08/06/17 04:00 48 08/06/17 00:00 52 08/06/17 00:00 98.6 54 20 114/50 94 Room Air 98.6 08/05/17 21:22 67 155/63 08/05/17 20:00 62 08/05/17 20:00 99.1 69 20 155/63 96 Room Air 99.1 08/05/17 16:00 57 08/05/17 16:00 97.5 74 18 130/70 96 Room Air 97.5 08/05/17 12:00 66 08/05/17 12:00 97.5 60 18 129/56 96 Room Air 97.5 Intake and Output 08/05/17 08/06/17 19:00 07:00 Intake Total 232 ml 772 ml Output Total 700 ml 850 ml Balance -468 ml -78 ml Intake Oral 232 ml 472 ml IV Total 60 ml Other 240 ml Output Urine Total 700 ml 850 ml # Voids 4 3 # Bowel Movements 2 1 Laboratory Tests 08/06/17 08:17: White Blood Count [Pending], Red Blood Count [Pending], Hemoglobin [Pending], Hematocrit [Pending], Mean Corpuscular Volume [Pending], Mean Corpuscular Hemoglobin [Pending], Mean Corpuscular Hemoglobin Concent [Pending], Red Cell Distribution Width [Pending], Platelet Count [Pending], Mean Platelet Volume [ Pending], Neutrophils (%) (Auto) [Pending], Lymphocytes (%) (Auto) [Pending], Monocytes (%) (Auto) [Pending], Eosinophils (%) (Auto) [Pending], Basophils (%) (Auto) [Pending], Sodium Level [Pending], Potassium Level [Pending], Chloride Level [Pending], Carbon Dioxide Level [Pending], Blood Urea Nitrogen [Pending], Creatinine [Pending], Estimat Glomerular Filtration Rate [Pending], Glucose Level [Pending], Calcium Level [Pending], Total Bilirubin [Pending], Aspartate Amino Transf (AST/SGOT) [Pending], Alanine Aminotransferase (ALT/SGPT) [Pending] , Alkaline Phosphatase [Pending], Troponin I [Pending], Total Protein [Pending] , Albumin [Pending], Globulin [Pending] Height (Feet): 6 Height (Inches): 2.00 Weight (Pounds): 175 Objective General: alert, cooperative, no distress, appears stated age Head: normocephalic, without obvious abnormality, atraumatic Eyes: conjunctivae/corneas clear. PERRL, EOM's intact Throat: lips, mucosa, and tongue normal. MMM Neck: supple, symmetrical, trachea midline, and no JVD Lungs: clear to auscultation bilaterally Heart: regular rate and rhythm, S1, S2 normal, no murmur, click, rub or gallop Abdomen: soft, mild TTP, non-distended, bowel sounds normal Extremities: extremities normal, atraumatic, no cyanosis or edema Pulses: 2+ and symmetric Skin: skin color, texture, turgor normal; no rashes or lesions Neurologic: grossly normal, no focal deficits Sherry Mccoy M.D. Aug 06, 2017 08:33
[2017-08-06 08:53] LABS: ALANINE AMINOTRANSFERASE 13 U/L (12-78); ALBUMIN 2.5 G/DL (3.4-5.0); ALBUMIN/GLOBULIN RATIO 0.7 (1.0-2.7); ALKALINE PHOSPHATASE 136 U/L (46-116); ANION GAP 8 mmol/L (5-15); ASPARTATE AMINO TRANSFERASE 16 U/L (15-37); BILIRUBIN,TOTAL 0.4 MG/DL (0.2-1.0); BLOOD UREA NITROGEN 34 mg/dL (7-18); CARBON DIOXIDE 23 MMOL/L (21-32); CHLORIDE 103 MMOL/L (98-107); CREATININE 1.9 MG/DL (0.55-1.30); POTASSIUM 4.2 MMOL/L (3.5-5.1); SODIUM 134 MMOL/L (136-145)
[2017-08-06] MEDS: Metoprolol Tartrate 12.5mg TAB ORAL SCH (09:00)
[2017-08-06] MEDS: Vitamin D 1000 IU Tab ORAL SCH (09:36)
[2017-08-06] MEDS: Paricalcitol 1mcg cap ORAL SCH ×2 (09:36→12:17)
[2017-08-06] MEDS: Levodopa/Carbidopa 25/100 tab ORAL SCH ×2 (09:36→12:17)
[2017-08-06] MEDS: Docusate 100mg cap ORAL SCH (09:36)
[2017-08-06] MEDS: Donepezil 5mg Tab ORAL SCH (09:36)
[2017-08-06] MEDS: Torsemide 10mg tab ORAL SCH (09:36)
[2017-08-06] MEDS: Pantoprazole Inj IVP SCH (09:37)
[2017-08-06] MEDS ORDERED: PROTONIX40 MG ORAL (11:17)
[2017-08-06 12:00] VITALS: BP 138/59
--- NOTE | 2017-08-06 14:02 | GI Progress Note ---
Assessment/Plan Problems: (1) Acute GI bleeding ICD Codes: K92.2 - Gastrointestinal hemorrhage, unspecified SNOMED: 46450152 (2) Dementia ICD Codes: F03.90 - Unspecified dementia without behavioral disturbance SNOMED: 03064754 (3) Acute blood loss anemia ICD Codes: D62 - Acute posthemorrhagic anemia SNOMED: 102136271 Status: stable Status Narrative Discussed with Dr. Montoya. Assessment/Plan Assessment - rectal bleeding - Anemia - Elevated troponin - OBS - DM - OB stool positive, second negative. - stable H&H - patient had recent done at [facility] >> records reviewed. Recommendations okay for DC per GI standpoint - colonoscopy cancelled - monitor CBC - may need transfusion - po as tolerated The patient was seen and examined at bedside and all new and available data was reviewed in the patients chart. I agree with the above findings, impression and plan. (Patient seen earlier today. Signature stamp does not reflect patient encounter time.). - Trenton Montoya MD Subjective Subjective denies any rectal bleeding at this time Objective Last 24 Hour Vital Signs Date Time Temp Pulse Resp B/P (MAP) Pulse Ox O2 Delivery O2 Flow Rate FiO2 08/06/17 12:00 51 08/06/17 12:00 98.1 58 21 138/59 96 Room Air 98.1 08/06/17 09:00 59 102/50 08/06/17 08:00 62 08/06/17 08:00 98.1 59 21 98/56 97 Room Air 98.1 08/06/17 04:00 97.7 80 20 120/85 99 Room Air 97.7 08/06/17 04:00 48 08/06/17 00:00 52 08/06/17 00:00 98.6 54 20 114/50 94 Room Air 98.6 08/05/17 21:22 67 155/63 08/05/17 20:00 62 08/05/17 20:00 99.1 69 20 155/63 96 Room Air 99.1 08/05/17 16:00 57 08/05/17 16:00 97.5 74 18 130/70 96 Room Air 97.5 Intake and Output 08/05/17 08/06/17 19:00 07:00 Intake Total 232 ml 772 ml Output Total 700 ml 850 ml Balance -468 ml -78 ml Intake Oral 232 ml 472 ml IV Total 60 ml Other 240 ml Output Urine Total 700 ml 850 ml # Voids 4 3 # Bowel Movements 2 1 Laboratory Tests Test 08/06/17 08:17 White Blood Count 11.1 K/UL (4.8-10.8) H Red Blood Count 2.69 M/UL (4.70-6.10) L Hemoglobin 8.2 G/DL (14.2-18.0) L Hematocrit 24.1 % (42.0-52.0) L Mean Corpuscular Volume 90 FL (80-99) Mean Corpuscular Hemoglobin 30.4 PG (27.0-31.0) Mean Corpuscular Hemoglobin Concent 33.9 G/DL (32.0-36.0) Red Cell Distribution Width 12.1 % (11.6-14.8) Platelet Count 363 K/UL (150-450) Mean Platelet Volume 5.7 FL (6.5-10.1) L Neutrophils (%) (Auto) 69.0 % (45.0-75.0) Lymphocytes (%) (Auto) 16.0 % (20.0-45.0) L Monocytes (%) (Auto) 12.7 % (1.0-10.0) H Eosinophils (%) (Auto) 1.5 % (0.0-3.0) Basophils (%) (Auto) 0.8 % (0.0-2.0) Sodium Level 134 MMOL/L (136-145) L Potassium Level 4.2 MMOL/L (3.5-5.1) Chloride Level 103 MMOL/L (98-107) Carbon Dioxide Level 23 MMOL/L (21-32) Anion Gap 8 mmol/L (5-15) Blood Urea Nitrogen 34 mg/dL (7-18) H Creatinine 1.9 MG/DL (0.55-1.30) H Estimat Glomerular Filtration Rate mL/min (>60) Glucose Level 142 MG/DL (74-106) H Calcium Level 8.0 MG/DL (8.5-10.1) L Total Bilirubin 0.4 MG/DL (0.2-1.0) Aspartate Amino Transf (AST/SGOT) 16 U/L (15-37) Alanine Aminotransferase (ALT/SGPT) 13 U/L (12-78) Alkaline Phosphatase 136 U/L (46-116) H Troponin I 0.129 ng/mL (0.000-0.056) Total Protein 6.1 G/DL (6.4-8.2) L Albumin 2.5 G/DL (3.4-5.0) L Globulin 3.6 g/dL Albumin/Globulin Ratio 0.7 (1.0-2.7) L Height (Feet): 6 Height (Inches): 2.00 Weight (Pounds): 175 General Appearance: WD/WN, no apparent distress, alert Cardiovascular: normal rate Respiratory/Chest: normal breath sounds, no respiratory distress Abdominal Exam: normal bowel sounds, non tender, soft Extremities: normal range of motion, non-tender Cris Cleveland N.Hao Aug 06, 2017 14:02 JULIA MONTOYA Aug 08, 2017 14:11
--- NOTE | 2017-08-06 14:43 | Cardiac Electrophysiology PN ---
Assessment/Plan Assessment/Plan 1. Elevated troponin of 0.1, 0.1 and 0.08. EKG showed sinus rhythm, but no acute ST-T wave abnormalities and the patient does not have any chest pain. Levels are flat. Elevated troponin due to renal failure with the creatinine of 2.1. Continue beta-efe. Avoid aspirin in view of gastrointestinal bleed.Echo NL EF. 2. Hypertension. On Lopressor 12.5 mg b.i.d. and Torsemide 3. First degree AVB 4. Rectal bleed. Further evaluation by Gastroenterology. Refused EGD 5. Diabetes. On insulin. 6. Benign prostatic hypertrophy. On Flomax. 7. Dementia. On Aricept. 8. Hyperlipidemia. On Lipitor. ISAAC RN and Dr Powell DC planning today Subjective Subjective Comfortable no chest pain or SOB. EGD wasn't done as there was no consent.DC planning in progress Objective Last 24 Hour Vital Signs Date Time Temp Pulse Resp B/P (MAP) Pulse Ox O2 Delivery O2 Flow Rate FiO2 08/06/17 12:00 51 08/06/17 12:00 98.1 58 21 138/59 96 Room Air 98.1 08/06/17 09:00 59 102/50 08/06/17 08:00 62 08/06/17 08:00 98.1 59 21 98/56 97 Room Air 98.1 08/06/17 04:00 97.7 80 20 120/85 99 Room Air 97.7 08/06/17 04:00 48 08/06/17 00:00 52 08/06/17 00:00 98.6 54 20 114/50 94 Room Air 98.6 08/05/17 21:22 67 155/63 08/05/17 20:00 62 08/05/17 20:00 99.1 69 20 155/63 96 Room Air 99.1 08/05/17 16:00 57 08/05/17 16:00 97.5 74 18 130/70 96 Room Air 97.5 Intake and Output 08/05/17 08/06/17 19:00 07:00 Intake Total 232 ml 772 ml Output Total 700 ml 850 ml Balance -468 ml -78 ml Intake Oral 232 ml 472 ml IV Total 60 ml Other 240 ml Output Urine Total 700 ml 850 ml # Voids 4 3 # Bowel Movements 2 1 Laboratory Tests Test 08/06/17 08:17 White Blood Count 11.1 K/UL (4.8-10.8) H Red Blood Count 2.69 M/UL (4.70-6.10) L Hemoglobin 8.2 G/DL (14.2-18.0) L Hematocrit 24.1 % (42.0-52.0) L Mean Corpuscular Volume 90 FL (80-99) Mean Corpuscular Hemoglobin 30.4 PG (27.0-31.0) Mean Corpuscular Hemoglobin Concent 33.9 G/DL (32.0-36.0) Red Cell Distribution Width 12.1 % (11.6-14.8) Platelet Count 363 K/UL (150-450) Mean Platelet Volume 5.7 FL (6.5-10.1) L Neutrophils (%) (Auto) 69.0 % (45.0-75.0) Lymphocytes (%) (Auto) 16.0 % (20.0-45.0) L Monocytes (%) (Auto) 12.7 % (1.0-10.0) H Eosinophils (%) (Auto) 1.5 % (0.0-3.0) Basophils (%) (Auto) 0.8 % (0.0-2.0) Sodium Level 134 MMOL/L (136-145) L Potassium Level 4.2 MMOL/L (3.5-5.1) Chloride Level 103 MMOL/L (98-107) Carbon Dioxide Level 23 MMOL/L (21-32) Anion Gap 8 mmol/L (5-15) Blood Urea Nitrogen 34 mg/dL (7-18) H Creatinine 1.9 MG/DL (0.55-1.30) H Estimat Glomerular Filtration Rate mL/min (>60) Glucose Level 142 MG/DL (74-106) H Calcium Level 8.0 MG/DL (8.5-10.1) L Total Bilirubin 0.4 MG/DL (0.2-1.0) Aspartate Amino Transf (AST/SGOT) 16 U/L (15-37) Alanine Aminotransferase (ALT/SGPT) 13 U/L (12-78) Alkaline Phosphatase 136 U/L (46-116) H Troponin I 0.129 ng/mL (0.000-0.056) Total Protein 6.1 G/DL (6.4-8.2) L Albumin 2.5 G/DL (3.4-5.0) L Globulin 3.6 g/dL Albumin/Globulin Ratio 0.7 (1.0-2.7) L Objective HEAD AND NECK: No JVD. LUNGS: Clear. CARDIOVASCULAR: Regular S1 and S2 with no gallop or murmur. ABDOMEN: Soft and nontender. EXTREMITIES: No pitting edema. Reyes Solomon MD Aug 06, 2017 14:43
[2017-08-06] MEDS ORDERED: Tubing IV Secondary IV ONE (14:54)
[2017-08-06] MEDS ORDERED: NS 275ml ONE (14:54)
--- NOTE | 2017-08-07 00:12 | General Progress Note ---
Assessment/Plan Assessment/Plan 1. Leukocytosis, likely secondary to reactive process. --> Continue to closely monitor. --> Improved from yesterday and resolved at this time. 2. Prostate cancer versus benign prostatic hypertrophy. --> PSA level has been reviewed. Currently 20. 3. Anemia due to underlying gastrointestinal bleed. --> Okay to proceed with endoscopy as per Cardiology Service. --> Transfuse if hemoglobin <7.5 --> Hemoglobin levels remain above goal. Does not need transfusion at this time. --> No occult blood seen in most recent exam 4. Elevated troponin. --> On a beta-efe. Currently without any chest pain. 5. Benign prostatic hypertrophy. On Flomax. 6. Hypertension. On Procardia XL and Lopressor. 7. Hyperlipidemia. On lipitor. 8. Diabetes. On insulin sliding scale. 9. Dementia. On aricept Subjective Date patient seen: Aug 06, 2017 Constitutional: Denies: no symptoms, chills, diaphoresis, fever, malaise, weakness, other HEENT: Denies: no symptoms, eye pain, blurred vision, tearing, double vision, ear pain, ear discharge, nose pain, nose congestion, throat pain, throat swelling, mouth pain, mouth swelling, other Cardiovascular: Denies: no symptoms, chest pain, edema, irregular heart rate, lightheadedness, palpitations, syncope, other Respiratory: Denies: no symptoms, cough, orthopnea, shortness of breath, SOB with excertion, SOB at rest, sputum, stridor, wheezing, other Gastrointestinal/Abdominal: Denies: no symptoms, abdomen distended, abdominal pain, black stools, tarry stools, blood in stool, constipated, diarrhea, difficulty swallowing, nausea, poor appetite, poor fluid intake, rectal bleeding , vomiting, other Genitourinary: Denies: no symptoms, burning, discharge, frequency, flank pain, hematuria, incontinence, pain, urgency, other Neurologic/Psychiatric: Denies: no symptoms, anxiety, depressed, emotional problems, headache, numbness, paresthesia, pre-existing deficit, seizure, tingling, tremors, weakness, other Hematologic/Lymphatic: Reports: anemia Allergies: Coded Allergies: CHLORHEXIDINE (Verified Allergy, Unknown, 08/01/17) Subjective No respiratory distress. No active bleeding. Pending discharge. Objective Last 24 Hour Vital Signs Date Time Temp Pulse Resp B/P (MAP) Pulse Ox O2 Delivery O2 Flow Rate FiO2 08/06/17 12:00 51 08/06/17 12:00 98.1 58 21 138/59 96 Room Air 98.1 08/06/17 09:00 59 102/50 08/06/17 08:00 62 08/06/17 08:00 98.1 59 21 98/56 97 Room Air 98.1 08/06/17 04:00 97.7 80 20 120/85 99 Room Air 97.7 08/06/17 04:00 48 Intake and Output 08/06/17 08/07/17 19:00 07:00 Output Total 650 ml Balance -650 ml Output Urine Total 650 ml Laboratory Tests 08/06/17 08:17: White Blood Count 11.1H, Red Blood Count 2.69L, Hemoglobin 8.2L, Hematocrit 24.1L, Mean Corpuscular Volume 90, Mean Corpuscular Hemoglobin 30.4, Mean Corpuscular Hemoglobin Concent 33.9, Red Cell Distribution Width 12.1, Platelet Count 363, Mean Platelet Volume 5.7L, Neutrophils (%) (Auto) 69.0, Lymphocytes ( %) (Auto) 16.0L, Monocytes (%) (Auto) 12.7H, Eosinophils (%) (Auto) 1.5, Basophils (%) (Auto) 0.8, Sodium Level 134L, Potassium Level 4.2, Chloride Level 103, Carbon Dioxide Level 23, Anion Gap 8, Blood Urea Nitrogen 34H, Creatinine 1.9H, Estimat Glomerular Filtration Rate , Glucose Level 142H, Calcium Level 8.0L, Total Bilirubin 0.4, Aspartate Amino Transf (AST/SGOT) 16, Alanine Aminotransferase (ALT/SGPT) 13, Alkaline Phosphatase 136H, Troponin I 0.129H, Total Protein 6.1L, Albumin 2.5L, Globulin 3.6, Albumin/Globulin Ratio 0.7L Height (Feet): 6 Height (Inches): 2.00 Weight (Pounds): 175 General Appearance: no apparent distress EENT: normal ENT inspection Cardiovascular: normal rate Efrain Lake MD Aug 07, 2017 00:12
--- NOTE | 2017-08-07 07:22 | Discharge Summary ---
Discharge Summary Hospital Course Date of Admission Aug 01, 2017 at 19:03 Date of Discharge Aug 06, 2017 at 14:55 Admitting Diagnosis Acute GI bleed Reason for Hospitalization: Acute GI bleed HPI 82y/o male with pmh of Parkinson's disease, HTN, HLD, dementia, BPH, CAD, DM2 who presents with bloody stools. Pt was sent from SNF given stool that appears deep red with some black tarry stool too. Pt states he has never had this before. He c/o mid abd discomfort. Denies f/c, n/v, chest pain, SOB, dysuria. C/ o generalized weakness. In ED, pt had no e/o active bleeding. CBC showed hgb 10. Consultations Gastroenterology, Cardiology Hospital Course Pt was admitted and seen by GI. He initially had no active bleeding. Hgb downtrended but did not requiring transfusions. Pt then had episodes of melena. He was continued on PPI. Given elevated troponin, he was see by cardiology and workup unremarkable. GI recommended EGD and colo but DPOA refused. Pt did have recent EGD and colo at [facility] per DPOA. Hgb hgb stable and no active bleeding, pt was cleared for discharge by GI. Discharge diagnoses General: alert, cooperative, no distress, appears stated age Head: normocephalic, without obvious abnormality, atraumatic Eyes: conjunctivae/corneas clear. PERRL, EOM's intact Throat: lips, mucosa, and tongue normal. MMM Neck: supple, symmetrical, trachea midline, and no JVD Lungs: clear to auscultation bilaterally Heart: regular rate and rhythm, S1, S2 normal, no murmur, click, rub or gallop Abdomen: soft, non-tender, non-distended, bowel sounds normal Extremities: extremities normal, atraumatic, no cyanosis or edema Pulses: 2+ and symmetric Skin: skin color, texture, turgor normal; no rashes or lesions Neurologic: grossly normal, no focal deficits Discharge diagnoses: (1) Acute GI bleeding ICD Codes: K92.2 - Gastrointestinal hemorrhage, unspecified SNOMED: 63063824 (2) Acute blood loss anemia ICD Codes: D62 - Acute posthemorrhagic anemia SNOMED: 302499234 (3) STEPHANIE on CKD (4) Elevated troponin ICD Codes: R74.8 - Abnormal levels of other serum enzymes SNOMED: 404901358, 786016698, 277340199 (5) DM2 (diabetes mellitus, type 2) ICD Codes: E11.9 - Type 2 diabetes mellitus without complications SNOMED: 16875814 (6) HTN (hypertension) ICD Codes: I10 - Essential (primary) hypertension SNOMED: 69292420 (7) HLD (hyperlipidemia) ICD Codes: E78.5 - Hyperlipidemia, unspecified SNOMED: 83697771 (8) BPH (benign prostatic hyperplasia) ICD Codes: N40.0 - Benign prostatic hyperplasia without lower urinary tract symptoms SNOMED: 188864016 (9) CAD (coronary artery disease) ICD Codes: I25.10 - Atherosclerotic heart disease of [place] coronary artery without angina pectoris SNOMED: 17868839 (10) Dementia ICD Codes: F03.90 - Unspecified dementia without behavioral disturbance SNOMED: 55715094 (11) Parkinsonism ICD Codes: G20 - Parkinson's disease SNOMED: 07830416 (12) CVA (cerebral vascular accident) ICD Codes: I63.9 - Cerebral infarction, unspecified SNOMED: 592612879 (13) Chronic diastolic heart failure ICD Codes: I50.32 - Chronic diastolic (congestive) heart failure Discharge Medications Continued Medications: Atorvastatin Calcium* (Lipitor*) 80 Mg Tablet 80 MG ORAL BEDTIME, TAB (This prescription has been renewed) Carbidopa/Levodopa 25-100 Mg* (Sinemet 25-100 Mg Tablet*) 1 Each Tablet 1 TAB ORAL THREE TIMES A DAY, TAB (This prescription has been renewed) Docusate Sodium* (Docusate Sodium*) 100 Mg Capsule 100 MG ORAL TWICE A DAY, CAP (This prescription has been renewed) Donepezil Hcl* (Aricept*) 5 Mg Tablet 5 MG ORAL DAILY, TAB (This prescription has been renewed) Famotidine (Pepcid) 20 Mg Tablet 20 MG ORAL BEDTIME, #7 TAB 0 Refills (This prescription has been renewed) Ferrous Sulfate* (Ferrous Sulfate*) 325 Mg Tablet 325 MG ORAL TWICE A DAY, #60 TAB 0 Refills (This prescription has been renewed) Fish Oil (Fish Oil 1,000 mg Capsule) 1 Each Capsule 1000 MG ORAL DAILY, CAP (This prescription has been renewed) Linagliptin (Tradjenta) 5 Mg Tablet 5 MG PO DAILY, TAB (This prescription has been renewed) Lisinopril (Lisinopril*) 20 Mg Tablet 20 MG ORAL BID, TAB (This prescription has been renewed) Multivitamin With Minerals (Multivitamins With Minerals*) 1 Each Tablet 1 TAB ORAL DAILY, TAB (This prescription has been renewed) Nifedipine Xl* (Procardia Xl*) 90 Mg Tab.er.24 90 MG ORAL DAILY, TAB (This prescription has been renewed) Pantoprazole* (Protonix*) 40 Mg Tablet.dr 40 MG ORAL TWICE A DAY, TAB (This prescription has been renewed) Paricalcitol (Zemplar) 1 Mcg Capsule 1 MCG ORAL TID for 30 Days, MCG 0 Refills (This prescription has been renewed) Potassium Chloride (Potassium Chloride) 20 Meq Packet 20 MEQ ORAL DAILY, #30 PKT 0 Refills (This prescription has been renewed) Tamsulosin Hcl (Tamsulosin Hcl*) 0.4 Mg Cap.er.24h 0.4 MG ORAL BEDTIME, CAP (This prescription has been renewed) Torsemide* (Demadex*) 20 Mg Tablet 20 MG ORAL DAILY, TAB 0 Refills (This prescription has been renewed) Vitamin D (Vitamin D3) 400 Unit Tablet 1000 UNITS ORAL DAILY, TAB (This prescription has been renewed) Discontinued Medications: Clopidogrel Bisulfate* (Plavix*) 75 Mg Tablet 75 MG ORAL DAILY, TAB Discharge Condition Upon Discharge: stable Discharge Disposition Patient was discharged to [facility] (04) Sherry Mccoy M.D. Aug 07, 2017 07:22
--- NOTE | 2017-08-07 14:52 | Cardiology Report ---
APPROVED REPORT EXAM: Two-dimensional and M-mode echocardiogram with Doppler and color Doppler. INDICATION S.O.B M-Mode DIMENSIONS IVSd1.3 (0.7-1.1cm)Left Atrium (MM)3.8 (1.6-4.0cm) LVDd5.9 (3.5-5.6cm)Aortic Root3.9 (2.0-3.7cm) PWd1.6 (0.7-1.1cm)Aortic Cusp Exc.2.0 (1.5-2.0cm) IVSs1.7 cm LVDs4.0 (2.5-4.0cm) PWs2.3 cm Normal left ventricular chamber size, systolic function and wall motion. Left ventricular ejection fraction estimated to be 65%. No evidence of left ventricular hypertrophy. No evidence of pericardial effusion. Mild Left atrial enlargement. Right cardiac chamber sizes are within normal limits. Focal aortic valve sclerosis with adequate cusp excursion. Mildly Thickened mitral valve leaflets with normal excursion. Mildly Mitral annulus and aortic root calcification. Pulmonic valve not well visualized. Normal tricuspid valve structure. IVC at normal size with physiologic collapse. A color flow and spectral Doppler study was performed and revealed: No aortic regurgitation. Mild mitral regurgitation . Mitral diastolic velocities suggest reduced left ventricular relaxation c/w mild LV diastolic dysfunction (Grade I ). Mild tricuspid regurgitation. Tricuspid systolic velocities suggests peak right ventricular systolic pressure of 50 mmHg,consistent with moderate pulmonary hypertension. No Pulmonic regurgitation present.
--- NOTE | 2017-08-07 17:50 | Cardiology Report ---
APPROVED REPORT EKG Measurement Heart [id number] Normal sinus rhythm Left axis deviation Septal infarct, age undetermined Abnormal ECG
== END 2017-08-06 14:55 | DRG 378 ==
LOC: EDBD 17:32 → EMR 18:47 → EDBEDREQSVC 18:56 → EDBEDREQ 18:57 → 2E 19:03 → EDBEDREQ 20:40 → 2E 08-02 06:27
DX: K92.2 Gastrointestinal hemorrhage, unspecified (principal); D62 Acute posthemorrhagic anemia; I13.0 Hypertensive heart and chronic kidney disease with heart failure and stage 1 through stage 4 chronic kidney disease, or unspecified chronic kidney disease; I50.32 Chronic diastolic (congestive) heart failure; N17.9 Acute kidney failure, unspecified; N18.9 Chronic kidney disease, unspecified; E11.9 Type 2 diabetes mellitus without complications; I25.10 Atherosclerotic heart disease of native coronary artery without angina pectoris; F03.90 Unspecified dementia, unspecified severity, without behavioral disturbance, psychotic disturbance, mood disturbance, and anxiety; G20 Parkinson's disease; Z79.4 Long term (current) use of insulin; N40.0 Benign prostatic hyperplasia without lower urinary tract symptoms; Z88.8 Allergy status to other drugs, medicaments and biological substances; E78.5 Hyperlipidemia, unspecified; Z86.73 Personal history of transient ischemic attack (TIA), and cerebral infarction without residual deficits; Z85.46 Personal history of malignant neoplasm of prostate; Z95.5 Presence of coronary angioplasty implant and graft; Z79.02 Long term (current) use of antithrombotics/antiplatelets; I44.0 Atrioventricular block, first degree
CPT/HCPCS: 36415; 71045; 80048; 80053; 80061; 82270; 82378; 82550; 82553; 82607; 82728; 82746; 82962; 83036; 83540; 83550; 83615; 83690; 83880; 83921; 84153; 84484; 85007; 85025; 85060; 85610; 85730; 86850; 86900; 86901; 87081; 93005; 93306; 99285; J1815; J2405; J8499